=== PATIENT | female | born 2000 | race Hispanic/Latino ===

== ENCOUNTER 2019-10-24 12:32 | Emergency (ER) | payer BC, SELFPAY ==
[2019-10-24 12:43] VITALS: BP 179/83; PULSE 87; RESP 16; TEMP 36.3; O2SAT 98; BMI 40.2
--- NOTE | 2019-10-24 13:04 | DI.US.S_ITS ---
PROCEDURE: US OB <= 14 WEEKS FETUS INDICATIONS: CRAMPING OUTSIDE/PRIOR DATING DATA: Last menstrual period (LMP): 09/14/2019. LMP-based estimated date of delivery (TANGELA): 06/20/20. First dating scan (date and location): 10/24/19. Estimated date of delivery (TANGELA) from first dating scan: 06/19/20. TECHNIQUE: Real-time scanning was performed of the fetus and maternal pelvic organs, with image documentation. Endovaginal scanning was also performed to better visualize the fetus and maternal ovaries. COMPARISON: None. FINDINGS: Embryo: There is a single intrauterine gestation with a mean gestational sac diameter of approximately 0.9 cm which correlates with approximately 5 weeks and 5 days gestational age. A pole is not visualized. No cardiac activity is identified at this time. No perigestational hemorrhage visualized. Measurement variability in dating: +/- 4 weeks by LMP, +/- 7 days by mean sac diameter (use before 6 weeks gestation if crown-rump length not able to be measured), +/- 5 days by crown-rump length (up to 8 weeks 6 days gestation), +/- 7 days by crown-rump length (up to 13 weeks 6 days gestation). Maternal organs: There is a probable 2.5 cm left corpus luteal cyst. Otherwise, unremarkable appearance of the maternal ovaries. Limited images through the kidneys demonstrate no hydronephrosis. IMPRESSION: 1. Single intrauterine gestation with an estimated sonographic gestational age of approximately 5 weeks and 5 days. A gestational sac is visualized. However, no pole or cardiac activity is visualized at this time. Recommend continued clinical surveillance with consideration for serial quantitative hCG measurements to document expected rate of rise for normal progression. Followup imaging after at least 14 days is recommended to document cardiac activity. 2. No acute abnormalities identified. Dictated by: Tadeo Post M.D. on 10/24/2019 at 13:58 Approved by: Tadeo Post M.D. on 10/24/2019 at 14:03
[2019-10-24 13:37] LABS: RBC Urine None Seen (0-5/HPF)
[2019-10-24] MEDS: ACETAMINOPHEN 325 MG TABLET 650 MG PO (13:56)
[2019-10-24 14:08] LABS: WBC Urine 1-5/HPF (0-5/HPF)
[2019-10-24 14:09] LABS: Bacteria Urine Few (2-10); Culture Indicated Urine Specimen Cultured; Mucus Urine 1+ (Negative); Squamous Epithelial Cell Urine 1-5 /HPF (0-5/HPF)
[2019-10-24 15:11] LABS: HCG Quantitative /Beta subunit 7503.3 mIU/mL
[2019-10-24 15:39] VITALS: BP 118/66; PULSE 77; RESP 16; O2SAT 100
--- NOTE | 2019-10-24 15:56 | ED_ITS ---
HPI - <[facility] - Last Filed: 10/24/19 21:45> General Chief complaint: OB/Uterine Contractions Stated complaint: Bad cramping, + test 10/20/19 Time Seen by Provider: 10/24/19 12:42 Source: patient Mode of arrival: Ambulatory Limitations: no limitations History of Present Illness HPI Narrative: This is a 19-year-old female, former smoker, who presents to ED w ith abdominal cramping discomfort which is worse on right side with positive home test result. Patient denies vaginal bleeding but reports some back pain. This is a . LMP was 09/14/2019. Patient reports she has an initial appointment with Dr. Hammond this coming Sunday for . Patient reports urinary frequency but denies dysuria, hematuria, urgency. Patient has intermittent nausea and occasional vomiting which is infrequent. Patient also reports has history of ovarian cyst and removal surgery that was done 2 years ago otherwise patient reports she has been healthy. Date of Last Menstrual Period: 09/14/19 Patient : Yes Expected Date of Delivery: 06/20/20 Related Data Allergies Allergy/AdvReac Type Severity Reaction Status Date / Time latex Allergy Verified 10/24/19 12:43 Review of Systems <[facility] - Last Filed: 10/24/19 21:45> Review of Systems Narrative: General: Denies fever, chills, fatigue, malaise, sweats. HEENT: Denies sinus pain, ear pain, sore throat, difficulty swallowing, dizziness. Respiratory: Denies dyspnea, cough, wheezing, hemoptysis, sputum. Cardiovascular: Denies chest pain, palpitations, orthopnea, edema. Gastrointestinal: See HPI : Denies dysuria, (+) frequency, incontinence, hematuria, urinary retention. Musculoskeletal: Denies weakness, joint pain or bony pain. Skin: Denies rash, skin lesions, or other. Neurologic: Denies weakness, headache, numbness, change in speech, confusion, seizures, incoordination. Psychiatric: No concerning psychosocial issues. 12-point review of systems is negative except for those stated above. PMFSH - <[facility] - Last Filed: 10/24/19 21:45> Past Medical History Additional medical history: Ovarian cyst MERCHANDISER history: Reports Other (Ovarian cyst removal) Date of Last Menstrual Period: 09/14/19 Patient : Yes Expected Date of Delivery: 06/20/20 Psychiatric history: Reports no psych history Exam <JESSICA Corbett - Last Filed: 10/24/19 21:45> Narrative Exam Narrative: General appearance: well developed, well nourished, in no acute distress. Head: normocephalic, atraumatic, no scalp lesions, non-tender. ENT: Hearing grossly intact. Nose without bleeding, purulent discharge. Mucous membrane moist, no mucosal lesion. Throat without erythema, tonsillar hypertrophy or exudate. Uvula in midline, airway patent. Neck/Thyroid: neck supple, full range of motion, no visible masses or meningeal signs. No JVD, non-tender without lymphadenopathy. Skin: no suspicious rashes, lesions over visible areas. Warm and dry and appropriate color for ethnicity. Heart: no clubbing, no cyanosis, no edema. S1 and S2 normal. RRR w/o murmurs, clicks, or bruits. Lungs: Breathing even and unlabored. No stridor. No accessory muscles used. Able to speak in full sentences. Chest: normal shape and expansion. Abdomen: Soft, no rebound tenderness, guarding, distension but tender to palpate bilateral lower abdomen. Neurologic: alert and oriented. Cognitive exam, DISABILITIES SERVICES OFFICER and PNS grossly intact on informal exam. Psych: good eye contact, normal affect. Initial Vital Signs Initial Vital Signs: Vital Signs Temperature 97.3 F L 10/24/19 12:43 Pulse Rate 87 10/24/19 12:43 Respiratory Rate 16 10/24/19 12:43 Blood Pressure 179/83 H 10/24/19 12:43 Pulse Oximetry 98 10/24/19 12:43 <Luz Tesfaye MD - Last Filed: 10/25/19 07:19> Initial Vital Signs Initial Vital Signs: Vital Signs Temperature 97.3 F L 10/24/19 12:43 Pulse Rate 87 10/24/19 12:43 Respiratory Rate 16 10/24/19 12:43 Blood Pressure 179/83 H 10/24/19 12:43 Pulse Oximetry 98 10/24/19 12:43 Scores <JESSICA Corbett - Last Filed: 10/24/19 21:45> GCS [place] coma scale eye opening: Spontaneous Sharmin coma scale verbal response: Orientated [place] coma scale motor response: Obey commands [place] coma scale total score: 15 Course <JESSICA Corbett - Last Filed: 10/24/19 21:45> Orders Ordered: Discontinued Medications Acetaminophen (Tylenol) 650 mg PO NOW ONE Stop: 10/24/19 13:05 Last Admin: 10/24/19 13:56 Dose: 650 mg Documented by: PETER Vital Signs Vital signs: Vital Signs - 8 hr 10/24/19 15:39 10/24/19 16:19 Pulse Rate 77 70 Respiratory Rate 16 16 Blood Pressure 118/60 Blood Pressure [Left Arm] 118/66 Pulse Oximetry 100 97 <Luz Tesfaye MD - Last Filed: 10/25/19 07:19> Orders Ordered: Discontinued Medications Acetaminophen (Tylenol) 650 mg PO NOW ONE Stop: 10/24/19 13:05 Last Admin: 10/24/19 13:56 Dose: 650 mg Documented by: PETER Vital Signs Vital signs: Vital Signs - 8 hr 10/24/19 15:39 10/24/19 16:19 Pulse Rate 77 70 Respiratory Rate 16 16 Blood Pressure 118/60 Blood Pressure [Left Arm] 118/66 Pulse Oximetry 100 97 MDM - OB/Uterine Contractions <JESSICA Corbett - Last Filed: 10/24/19 21:45> Differential Diagnosis Differential diagnosis: Likely other (, ectopic , ovarian cyst, threaten AB, UTI) Medical Records Attestation: I reviewed the patient's medical records. Lab Data Attestation: I reviewed the patient's lab results. Labs: Lab Results 10/24/19 10/24/19 10/24/19 Range/Units 13:20 14:06 14:06 HCG, Quant 7503.3 mIU/mL Urine RBC None seen (0-5/HPF) Urine WBC 1-5/hpf (0-5/HPF) Ur Squamous Epith Cells 1-5 /hpf (0-5/HPF) Urine Bacteria Few (2-10) H (None) Urine Mucus 1+ H (Negative) Ur Culture Indicated? Specimen cultured Blood Type A Positive Point of Care Testing Test Results Positive Urine Dip Bedside Urine Glucose Negative Bedside Urine Bilirubin - Negative Bedside Urine Ketone - Negative Urine Specific [place] 1.025 Bedside Urine Occult Blood - Negative Bedside Urine pH 6.0 Bedside Urine Protein - Negative Bedside Urine Urobilinogen - Negative Bedside Urine Nitrite - Negative Bedside Urine Leukocytes +/- 15 Esterase Imaging Data US Gestational: Radiologist's Impression: [address] [address] Ultrasound Report Signed Patient: Lucy Marquez CMR#: [id number] : 2000Acct:[id number] Age/Sex: te of Service: 10/24/19 Loc: ED Accession Number: [id number] Procedure: US OB <= 14 weeks fetus Ordering Provider: Wilmer Hernandez PROCEDURE: US OB <= 14 WEEKS FETUS INDICATIONS: CRAMPING OUTSIDE/PRIOR DATING DATA: Last menstrual period (LMP): 09/14/2019. LMP-based estimated date of delivery (TANGELA): 06/20/20. First dating scan (date and location): 10/24/19. Estimated date of delivery (TANGELA) from first dating scan: 06/19/20. TECHNIQUE: Real-time scanning was performed of the fetus and maternal pelvic organs, with image documentation. Endovaginal scanning was also performed to better visualize the fetus and maternal ovaries. COMPARISON: None. FINDINGS: Embryo: There is a single intrauterine gestation with a mean gestational sac diameter of approximately 0.9 cm which correlates with approximately 5 weeks and 5 days gestational age. A pole is not visualized. No cardiac activity is identified at this time. No perigestational hemorrhage visualized. Measurement variability in dating: +/- 4 weeks by LMP, +/- 7 days by mean sac diameter (use before 6 weeks gestation if crown-rump length not able to be measured), +/- 5 days by crown-rump length (up to 8 weeks 6 days gestation), +/- 7 days by crown-rump length (up to 13 weeks 6 days gestation). Maternal organs: There is a probable 2.5 cm left corpus luteal cyst. Otherwise, unremarkable appearance of the maternal ovaries. Limited images through the kidneys demonstrate no hydronephrosis. IMPRESSION: 1. Single intrauterine gestation with an estimated sonographic gestational age of approximately 5 weeks and 5 days. A gestational sac is visualized. However, no pole or cardiac activity is visualized at this time. Recommend continued clinical surveillance with consideration for serial quantitative hCG measurements to document expected rate of rise for normal progression. Followup imaging after at least 14 days is recommended to document cardiac activity. 2. No acute abnormalities identified. Dictated by: Tadeo Post M.D. on 10/24/2019 at 13:58 Approved by: Tadeo Post M.D. on 10/24/2019 at 14:03 MDM Narrative Medical decision making narrative: This is a 19 year female with who presents to ED with low abdominal discomfort with nausea. LMP was 09/14/19 and g estational age as 5 week 5/7 day without vaginal bleeding. Test shows positive urine test with small amount of urine leukocytes esterase without nitrite. There was no hematuria. Urine test shows few bacteria with mucus and pending for culture. Quantitative hCG level is 7503 which correlates to patient's current gestational age. ultrasound test indicates a single intrauterine gestational sac which correlates to her gestational age but pole or cardiac activity were not been seen possibly due to early . There was no perigestational hemorrhage appreciated per ultrasound. Also, a probable 2.5 cm left corpus luteal cyst was seen. Kidney appears to be normal without hydronephrosis. Patient advised to follow-up with Dr. Hammond for 1st OB appointment and follow-up testing. Patient advised to take vitamins and Tylenol as needed for pain management. Patient verbalized understanding in agreement with treatment plan after discussed return precautions. <Luz Tesfaye MD - Last Filed: 10/25/19 07:19> Lab Data Labs: Lab Results 10/24/19 10/24/19 10/24/19 Range/Units 13:20 14:06 14:06 HCG, Quant 7503.3 mIU/mL Urine RBC None seen (0-5/HPF) Urine WBC 1-5/hpf (0-5/HPF) Ur Squamous Epith Cells 1-5 /hpf (0-5/HPF) Urine Bacteria Few (2-10) H (None) Urine Mucus 1+ H (Negative) Ur Culture Indicated? Specimen cultured Blood Type A Positive Point of Care Testing Test Results Positive Urine Dip Bedside Urine Glucose Negative Bedside Urine Bilirubin - Negative Bedside Urine Ketone - Negative Urine Specific [place] 1.025 Bedside Urine Occult Blood - Negative Bedside Urine pH 6.0 Bedside Urine Protein - Negative Bedside Urine Urobilinogen - Negative Bedside Urine Nitrite - Negative Bedside Urine Leukocytes +/- 15 Esterase Discharge Plan Departure Patient Disposition: Home Clinical Impression: Cyst of left ovary Qualifiers: Weeks of gestation: less than 8 weeks Qualified Code(s): Z3A.01 - Less than 8 weeks gestation of Discharge Date/Time: 10/24/19 16:21 Instructions: DI for -- Discomforts and Remedies Activity Restrictions/Additional Instructions: You have been diagnosed with [, bilateral lower abdominal cramping and left-sided corpus luteal cyst measuring approximately 2.5 cm. Ultrasound test shows a single gestational sac in intrauterine with approximately 5 weeks and 5 days gestational age. Since your is very early on, there is no cardiac activity or pole were visualized. Hcg quant today is 7503]. What to do: *Take your medications as directed. You can take Tylenol as needed for discomfort. You can take 2 extra-strength or regular Tylenol up to 3 to 4 times a day as needed. Please start taking vitamins which she can obtain [id number]. *Follow up with your primary care provider in 2-3 days/for follow-up with Dr. Hammond on Sunday as scheduled. Call for an appointment Let them know you were seen in the ED and that we asked you to be seen in follow up. *Return to ED if you have any new, worsening, or concerning symptoms, such as [chest pain, breathing difficulty, vaginal bleeding, lightheadedness, unable to tolerate fluids, fever or any acute concerns]. Referrals: Dong Hammond MD [Physician] - <Luz Tesfaye MD - Last Filed: 10/25/19 07:19> Cosign ED Attending Cosignature Attestation: Care and findings were reviewed with APC HCG is seven thousand five hundred, gestational sac is appreciated intrauterine without pole seen. Possible blighted ovum, will have patient follow-up with her primary OB care provider Final diagnosis should be early intra uterine with corpus luteum cyst noted,
[2019-10-24 16:19] VITALS: BP 118/60; PULSE 70; RESP 16; O2SAT 97
== END 2019-10-24 16:21 | disposition home or self-care (01) ==
PROVIDERS: Emergency Provider Nurse Practitioner Family
DX: O26.891 Other specified pregnancy related conditions, first trimester (principal); N83.202 Unspecified ovarian cyst, left side; Z3A.01 Less than 8 weeks gestation of pregnancy
CPT/HCPCS: 36415; 76801; 76817; 81003; 81015; 81025; 84702; 86900; 86901; 87086; 99284

== ENCOUNTER → 2020-08-07 11:17 | Outpatient (CLI) | payer BC, SELFPAY ==
[2020-08-07 12:18] LABS: Add Manual Diff / Slide Review NO; Basophils Absolute Auto 0 /uL (0-100); Basophils Percent Auto 0.4 % (0-2); Eosinophils Absolute Auto 400 /uL (0-450); Eosinophils Percent Auto 3.2 % (2-4); Hematocrit 44.2 % (36-46); Hemoglobin 14.6 g/dL (12.0-16.0); Lymphocytes Absolute Auto 3000 /uL (1100-4500); Mean Corpuscular Hemoglobin 26.9 PG (26-34); Mean Corpuscular Volume 81.8 fL (80-100); Monocytes Absolute Auto 500 /uL (0-900); Monocytes Percent Auto 4.5 % (3-14); Neutrophils Absolute Auto 7300 /uL (1500-7000); Neutrophils Percent Auto 64.9 % (50-75); Platelet Count 215 X10^3/uL (150-400); Red Cell Distribution Width 14.7 % (11.6-14.8); White Blood Cell Count 11.2 X10^3/uL (4.5-11.0)
[2020-08-07 12:46] LABS: Alanine Aminotransferase 62 IU/L (<35); Albumin 4.2 g/dL (3.5-5.0); Albumin Globulin Ratio 1.4 (1.0-2.8); Alkaline Phosphatase 93 U/L (38-126); Aspartate Aminotransferase 43 IU/L (14-36); BUN Creatinine Ratio 10.3 (6-22); Bilirubin Total 0.6 mg/dL (0.2-1.3); Blood Urea Nitrogen 8 mg/dL (7-17); Calcium 8.9 mg/dL (8.4-10.2); Carbon Dioxide 26 mmol/L (22-32); Chloride 107 mmol/L (98-107); Estimated Glomerular Filt Rate > 60.0 mL/min (>60); Globulin 3.1 g/dL (1.7-4.1); Glucose 114 mg/dL (70-100); HEMOLYSIS < 15 (0-50); Potassium 3.7 mmol/L (3.4-5.1); Sodium 138 mmol/L (137-145); Total Protein 7.3 g/dL (6.3-8.2)
[2020-08-07 12:59] LABS: Free T4, Direct Thyroxine 1.31 ng/dL (0.78-2.19)
[2020-08-07 13:13] LABS: Thyroid Stimulating Hormone 0.954 uIU/mL (0.47-4.68)
== END ==
PROVIDERS: PCP Registered Nurse; Referring Provider Registered Nurse; Visit Provider Registered Nurse
DX: Z00.00 Encounter for general adult medical examination without abnormal findings (principal); F32.9 Major depressive disorder, single episode, unspecified; F41.9 Anxiety disorder, unspecified
CPT/HCPCS: 36415; 80053; 84439; 84443; 85025

== ENCOUNTER → 2020-08-12 12:35 | Outpatient (CLI) | payer BC, SELFPAY ==
--- NOTE | 2020-08-12 12:36 | DI.US.S_ITS ---
PROCEDURE: US ABDOMEN COMPLETE INDICATIONS: ELEVATED LIVER ENZYMES TECHNIQUE: Real-time scanning was performed of the abdominal and retroperitoneal organs, with image documentation. COMPARISON: None. FINDINGS: Liver: The liver demonstrates normal size. The liver demonstrates generalized moderately increased echogenicity. This decreases ultrasound sensitivity for detection of hepatic masses. There is a hypoechoic homogeneous nonvascular focus that measures 2.3 x 1.7 x 1 cm. Within the right lower lobe adjacent to the gallbladder, there is a hypoechoic homogeneous nonvascular focus measures 17 x 2 x 19 mm. . The main portal vein measures 1.1 cm and demonstrates normal appearing, hepatopetal flow. Gallbladder: No findings of gallstones or sludge are seen. The gallbladder wall is not thickened, measuring 3 mm or less. No specific pericholecystic fluid is seen. The sonographic Ruiz sign is negative. Biliary ducts: Intrahepatic bile ducts are non-dilated. Extrahepatic bile duct caliber measures 4 mm. Normal is 6-7 mm or less in diameter, or 10 mm or less post-cholecystectomy. Pancreas: Visualized portions of the pancreas are sonographically normal. Spleen: Spleen is normal in size and homogeneous in echotexture. Kidneys: Kidneys are normal in size and echotexture. Right kidney measures 9.6 cm long; left kidney measures 9.3 cm long. No hydronephrosis or nephrolithiasis. No solid masses. There is a 1.1 cm simple cyst within the mid left kidney. Aorta: Visualized aorta is normal in caliber at less than 3 cm. Iliacs: Proximal common iliac arteries are normal in caliber at less than 2.5 cm. IVC: Intrahepatic inferior vena cava is patent. Miscellaneous: No free abdominal fluid. This study is limited by body habitus and overlying bowel gas. IMPRESSION: Fatty liver infiltration, with apparent areas of focal fatty sparing. The gallbladder demonstrates a normal sonographic appearance. No biliary dilatation is seen. 1.1 cm simple appearing left renal cyst incidentally noted. Dictated by: Bereket Oliveros M.D. on 08/12/2020 at 12:42 Approved by: Bereket Oliveros M.D. on 08/12/2020 at 12:44
== END ==
PROVIDERS: PCP Registered Nurse; Referring Provider Registered Nurse; Visit Provider Registered Nurse
DX: R74.8 Abnormal levels of other serum enzymes (principal); K76.0 Fatty (change of) liver, not elsewhere classified; N28.1 Cyst of kidney, acquired
CPT/HCPCS: 76700

== ENCOUNTER 2020-08-16 15:48 | Emergency (ER) | payer BC, SELFPAY ==
[2020-08-16 16:02] VITALS: BP 117/75; PULSE 105; RESP 17; TEMP 36.5; O2SAT 97
--- NOTE | 2020-08-16 16:59 | PC.NURSE ---
one attempt to start IV, no access from NIOs. Provider entered room and asked for no further attempts.
--- NOTE | 2020-08-16 17:01 | ED_ITS ---
HPI - General Adult General Chief complaint: Abdominal Pain Stated complaint: CRAMPS NAUSEA Time Seen by Provider: 08/16/20 16:49 Source: patient Mode of arrival: Ambulatory Limitations: no limitations History of Present Illness HPI narrative: Patient is a otherwise healthy 20-year-old female who has for the past 2 months had fairly consistent nausea that she describes comes from her upper abdomen. No fevers. She has been on Protonix for the past 3 weeks under recommendation from her primary doctor. She also describes cramping in her upper abdomen that has been intermittent. Does not seem to be associated with eating or movement or palpation or breathing or bowel movements or urination. She had an ultrasound performed here ordered by her primary doctor because of the symptoms. She stated that she contacted her primary doctor over the weekend because her symptoms been continued and she received a call today informing her to come to the emergency department. She states she is unsure as to why she is here. Related Data Home Medications Medication Instructions Recorded Confirmed etonogestrel 68 mg subdermal SUBDERMAL 07/29/20 08/10/20 implant metformin mg PO DAILY 08/16/20 pantoprazole [Protonix] 40 mg PO DAILY 08/16/20 08/16/20 Previous Rx's Medication Instructions Recorded citalopram 20 mg tablet 20 mg PO DAILY 30 Days #30 tab 07/29/20 ondansetron 4 mg PO Q6H PRN #14 tab 08/16/20 Allergies Allergy/AdvReac Type Severity Reaction Status Date / Time latex Allergy Verified 08/16/20 16:11 Review of Systems Constitutional Constitutional: Denies fever(s) Cardiovascular Cardiovascular: Denies chest pain and Denies dyspnea Respiratory Respiratory: Denies dyspnea Gastrointestinal Gastrointestinal: Denies abdominal pain, Denies change in bowel habits, Reports cramping, Reports nausea and Denies vomiting Genitourinary Genitourinary: Denies dysuria Genitourinary: Denies dysuria Musculoskeletal Musculoskeletal: Denies arthralgias and Denies myalgias Integumentary/Breasts Skin/Breast: Denies lesions and Denies rash Neurologic Neurologic: Denies behavioral changes and Denies confusion Psychiatric Psychiatric: Denies behavioral changes and Denies confusion Hematologic/Lymphatic On Anticoagulants: No Allergic/Immunologic Allergic/Immunologic: Denies urticaria Patient History Medical History Asthma History of bipolar disorder Migraines Ovarian cyst Painful menstrual periods Surgical History Anesthesia History of removal of ovarian cyst (~02/2018) Family History Grandmother Thyroid condition Social History Smoking Status: Current every day smoker Tobacco: How many years used: 6 quit status: quit date established second hand exposure: No alcohol intake: never substance use type: marijuana (daily ) Smoking Status: Current every day smoker tobacco type: cigarettes alcohol intake frequency: other Substance Use Type: marijuana Exam Initial Vital Signs Initial Vital Signs: Vital Signs Temperature 97.7 F 08/16/20 16:02 Pulse Rate 105 H 08/16/20 16:02 Respiratory Rate 17 08/16/20 16:02 Blood Pressure 117/75 08/16/20 16:02 Pulse Oximetry 97 08/16/20 16:02 Const General: cooperative and comfortable Limitations: mental status not altered HENMT Head: normal to inspection and normocephalic Resp Effort & Inspection: normal respiratory effort Auscultation: clear to auscultation bilaterally Cardio Rate: regular rate Rhythm: regular rhythm GI Inspection: non-distended Palpation: soft, No firm and No tender Back/Spine/Pelvis Back: No CVA tenderness Skin Lesions: no lesions Rashes: no rashes Neuro General: patient alert and patient awake Cognition: normal cognition Speech: speech normal Extrem General: capillary refill normal Psych Appearance: grossly normal and well kempt Course Orders Ordered: ED Orders 08/16/20 16:13 Complete Blood Count AUTO DIFF Stat Comprehensive Metabolic Panel Stat Lipase Stat Partial Thromboplastin Time Stat Prothrombin Time INR Stat Vital Signs Vital signs: Vital Signs - 8 hr 08/16/20 16:02 Temperature 97.7 F Pulse Rate 105 H Respiratory Rate 17 Blood Pressure 117/75 Pulse Oximetry 97 Medical Decision Making [facility] Narrative Medical decision making narrative: Patient has had symptoms for months and has seen her primary doctor regarding the symptoms. States that her symptoms have not changed the just have not improved. She feels like the Protonix is not helping all that much. She is not on any nausea medication. Given her presenting symptoms and exam and length of time I feel that no further workup is needed here in the emergency department. The patient agrees with this. We will send her home with nausea medication. Informed her that she should continue with the Protonix and talk with her primary doctor about having referral to see GI. Low suspicion for gallbladder pathology. Low suspicion for appendicitis, low suspicion for surgical pathology. She is not having any urinary bowel or vaginal symptoms peer Discharge Plan Departure Patient Disposition: Home Clinical Impression: Abdominal cramping, Nausea Instructions: DI for Nausea -- Adult Activity Restrictions/Additional Instructions: I recommend that you continue with the Protonix. Contact your primary doctor about the indications for referral to see Gastroenterology. Take the nausea medicine as needed. Return to the emergency department for any new or worsening symptoms. Prescriptions: New ondansetron 4 mg tablet,disintegrating 4 mg PO Q6H PRN (Reason: nausea and vomiting) Qty: 14 RF: 0 No Action Nexplanon 68 mg implant subdermal RF: 0 citalopram 20 mg tablet 20 mg PO DAILY 30 Days Qty: 30 RF: 2 metformin 500 mg Tablet PO DAILY RF: 0 pantoprazole [Protonix] 40 mg Tablet,Delayed Release (Dr/Ec) 40 mg PO DAILY RF: 0 Referrals: Calin Lozoya ARNP [Primary Care Provider] -
== END 2020-08-16 17:27 | disposition home or self-care (01) ==
PROVIDERS: Emergency Provider Emergency Medicine; PCP Registered Nurse
DX: R10.10 Upper abdominal pain, unspecified (principal); R11.0 Nausea; J45.909 Unspecified asthma, uncomplicated
CPT/HCPCS: 99281

== ENCOUNTER 2020-08-17 16:14 | Emergency (ER) | payer BC, SELFPAY ==
[2020-08-17 16:15] VITALS: BP 118/64; PULSE 95; RESP 20; TEMP 36.1; O2SAT 97
--- NOTE | 2020-08-17 17:07 | ED_ITS ---
HPI - Psych General Chief Complaint: Psychiatric Symptoms Stated Complaint: SI Time Seen by Provider: 08/17/20 16:32 Source: patient Mode of arrival: Ambulatory Limitations: no limitations History of Present Illness HPI Narrative: Patient is a 20-year-old female who was sent over from her primary doctor's office for evaluation of suicidal ideation and depression. Patient states that back but she was 13 years old she did have issues with depression was on medications at that time. She also practice cutting at the time. She has never been admitted to the hospital for and has never attempted suicide. The symptoms seemed to improve until a couple weeks/months ago where she started to become more depressed. She does not have a specific reason is why this happened. She has seen her primary doctor in 3 weeks ago was started on anti depression medications. Since that time she has had which she reports constant thoughts of hurting herself. There are no specific thoughts. She does state that it is more thoughts of cutting herself and not necessarily suicidal ideation however she has had some thoughts of just being and not having to deal with the symptoms that she is having. She denies any alcohol. She states that her symptoms are better when she is around other individuals. Related Data Home Medications Medication Instructions Recorded Confirmed etonogestrel 68 mg subdermal SUBDERMAL 07/29/20 08/10/20 implant metformin mg PO DAILY 08/16/20 pantoprazole [Protonix] 40 mg PO DAILY 08/16/20 08/16/20 Previous Rx's Medication Instructions Recorded citalopram 20 mg tablet 20 mg PO DAILY 30 Days #30 tab 07/29/20 ondansetron 4 mg PO Q6H PRN #14 tab 08/16/20 lorazepam [Ativan] 0.5 mg PO BID PRN #10 tab 08/17/20 Allergies Allergy/AdvReac Type Severity Reaction Status Date / Time lamotrigine Allergy Hives Verified 08/17/20 15:29 latex Allergy Verified 08/17/20 15:29 Review of Systems Constitutional Constitutional: Denies headache(s) ENT Ears, Nose, Mouth, and Throat: Denies headache(s) Cardiovascular Cardiovascular: Denies chest pain and Denies dyspnea Respiratory Respiratory: Denies dyspnea Gastrointestinal Gastrointestinal: Denies abdominal pain Integumentary/Breasts Skin/Breast: Denies rash Neurologic Neurologic: Denies headache(s) Psychiatric Psychiatric: Reports anxiety, Reports depression, Denies homicidal ideation and Reports suicidal ideation Hematologic/Lymphatic On Anticoagulants: No Allergic/Immunologic Allergic/Immunologic: Denies urticaria Patient History Medical History Asthma History of bipolar disorder Migraines Ovarian cyst Painful menstrual periods Surgical History Anesthesia History of removal of ovarian cyst (~02/2018) Family History Grandmother Thyroid condition Social History Smoking Status: Current every day smoker Tobacco: How many years used: 6 quit status: quit date established second hand exposure: No alcohol intake: never substance use type: marijuana (daily ) Smoking Status: Current every day smoker tobacco type: cigarettes alcohol intake frequency: other Substance Use Type: marijuana Exam Initial Vital Signs Initial Vital Signs: Vital Signs Temperature 96.9 F L 08/17/20 16:15 Pulse Rate 95 H 08/17/20 16:15 Respiratory Rate 20 08/17/20 16:15 Blood Pressure 118/64 08/17/20 16:15 Pulse Oximetry 97 08/17/20 16:15 Const General: cooperative, comfortable and well developed Limitations: mental status not altered HENMT Head: normal to inspection and normocephalic Resp Effort & Inspection: normal respiratory effort Cardio Rate: regular rate GI Inspection: non-distended Skin Lesions: no lesions Rashes: no rashes Neuro General: patient alert, patient awake and patient oriented x3 Cognition: normal cognition Speech: speech normal Extrem General: capillary refill normal Psych Appearance: grossly normal and well kempt Speech and Movement: not agitated and not restless Mood: congruent mood Affect: normal affect Attitude: cooperative Thought Content: normal Judgment: judgment good Scores GCS [place] coma scale eye opening: Spontaneous [place] coma scale verbal response: Orientated [place] coma scale motor response: Obey commands [place] coma scale total score: 15 Course Orders Ordered: ED Orders 08/17/20 16:[address] [facility] - [employer] Stat Vital Signs Vital signs: Vital Signs - 8 hr 08/17/20 16:15 08/17/20 17:55 Temperature 96.9 F L Pulse Rate 95 H 97 H Respiratory Rate 20 16 Blood Pressure 118/64 143/81 H Pulse Oximetry 97 95 MDM - Psych MDM Narrative Medical decision making narrative: Patient is alert oriented x3. GCS of 15. She is on antidepressant medications. Patient states she does not want to be admitted to the hospital. Had a long discussion with her regarding safety at home. She states that she does not think that she would act on any the thoughts she is having and she does express that the thoughts are more with cutting herse lf rather than wanting to kill herself. She attempted to contact the Mental Health Department here at the hospital but has been unable to reach anyone to schedule an appointment. Discussed options to include staying here in the emergency department versus being discharged home. We eventually were able to contact the [employer] who were going to contact the patient tomorrow to check in on her and potentially schedule follow-up appointments. Patient states that she was happy with this and thought that she would be safe at home. Her is at bedside and will be with her this evening. Patient was instructed that she needed return to the emergency department she had any further or worsening thoughts. She expressed understanding and agreement with this. Discharge Plan Departure Patient Disposition: Home Clinical Impression: Anxiety and depression Instructions: DI for Anxiety -- Adult Activity Restrictions/Additional Instructions: You should be receiving a call from the [employer] tomorrow morning. I recommend you continue all of your medications as directed. Please return to the emergency department for any new or worsening symptoms like we discussed. Prescriptions: New lorazepam [Ativan] 0.5 mg tablet 0.5 mg PO BID PRN (Reason: anxiety) Qty: 10 RF: 0 No Action Nexplanon 68 mg implant subdermal RF: 0 citalopram 20 mg tablet 20 mg PO DAILY 30 Days Qty: 30 RF: 2 metformin 500 mg Tablet PO DAILY RF: 0 pantoprazole [Protonix] 40 mg Tablet,Delayed Release (Dr/Ec) 40 mg PO DAILY RF: 0 ondansetron 4 mg tablet,disintegrating 4 mg PO Q6H PRN (Reason: nausea and vomiting) Qty: 14 RF: 0 Referrals: Calin Lozoya ARNP [Primary Care Provider] -
[2020-08-17 17:55] VITALS: BP 143/81; PULSE 97; RESP 16; O2SAT 95
== END 2020-08-17 18:05 | disposition home or self-care (01) ==
PROVIDERS: Emergency Provider Emergency Medicine; PCP Registered Nurse; Referring Provider Registered Nurse
DX: F41.9 Anxiety disorder, unspecified (principal); F32.9 Major depressive disorder, single episode, unspecified
CPT/HCPCS: 99283

== ENCOUNTER → 2020-10-20 14:57 | Outpatient (CLI) | payer BC, SELFPAY ==
[2020-10-20] MEDS: COVID-19 VACC #1, MRNA(MOD) 100 MCG/0.5 ML VIAL IM (15:05)
== END ==
PROVIDERS: PCP Registered Nurse; Visit Provider Internal Medicine
DX: Z23 Encounter for immunization (principal)
CPT/HCPCS: 0011A; 91301

== ENCOUNTER → 2020-11-17 14:56 | Outpatient (CLI) | payer BC, SELFPAY ==
[2020-11-17] MEDS: COVID-19 VACC #2, MRNA(MOD) 100 MCG/0.5 ML VIAL IM (15:01)
== END ==
PROVIDERS: PCP Registered Nurse; Visit Provider Internal Medicine
DX: Z23 Encounter for immunization (principal)
CPT/HCPCS: 0012A; 91301

== ENCOUNTER → 2020-12-16 13:11 | Outpatient (CLI) | payer BC, SELFPAY ==
[2020-12-16 15:15] LABS: Alanine Aminotransferase 60 IU/L (<35); Albumin 4.1 g/dL (3.5-5.0); Albumin Globulin Ratio 1.4 (1.0-2.8); Alkaline Phosphatase 81 U/L (38-126); Aspartate Aminotransferase 51 IU/L (14-36); Bilirubin Total 0.5 mg/dL (0.2-1.3); Blood Urea Nitrogen 9 mg/dL (7-17); Calcium 9.3 mg/dL (8.4-10.2); Carbon Dioxide 23 mmol/L (22-32); Chloride 107 mmol/L (98-107); Estimated Glomerular Filt Rate > 60.0 mL/min (>60); Globulin 2.9 g/dL (1.7-4.1); Glucose 83 mg/dL (70-100); HEMOLYSIS < 15 (0-50); Potassium 3.8 mmol/L (3.4-5.1); Sodium 138 mmol/L (137-145)
[2020-12-16 15:20] LABS: Lithium 0.4 mmol/L (0.6-1.2)
[2020-12-16 15:54] LABS: Thyroid Stimulating Hormone 2.59 uIU/mL (0.47-4.68)
== END ==
PROVIDERS: PCP Registered Nurse; Referring Provider Psychiatry & Neurology Psychiatry; Visit Provider Psychiatry & Neurology Psychiatry
DX: Z79.899 Other long term (current) drug therapy (principal)
CPT/HCPCS: 36415; 80053; 80178; 84443

== ENCOUNTER → 2021-02-06 15:42 | Outpatient (CLI) | payer BC, SELFPAY ==
--- NOTE | 2021-02-06 15:44 | DI.RAD.S_ITS ---
PROCEDURE: XR FOREARM LT 2V INDICATIONS: fall, distal and radial head tenderness TECHNIQUE: 2 views of the forearm were acquired. COMPARISON: [facility], CR, XR WRIST LT MIN 3V, 02/06/2021, 15:41. [facility], CR, XR HAND LT MIN 3V, 02/06/2021, 15:41. FINDINGS: Bones: In this patient with this given history, scrutiny is given to the radial head. No dislocation can be seen at this site. No fractures or dislocations are seen elsewhere. No suspicious bony lesions. Soft tissues: No suspicious soft tissue calcifications or masses. IMPRESSION: Negative plain films. In this patient with a given history of radial head tenderness, please consider a dedicated elbow plain film series or CT for further evaluation. Dictated by: Bereket Oliveros M.D. on 02/06/2021 at 15:12 Approved by: Bereket Oliveros M.D. on 02/06/2021 at 15:13
--- NOTE | 2021-02-06 15:44 | DI.RAD.S_ITS ---
PROCEDURE: XR WRIST LT MIN 3V INDICATIONS: fall, proximal and distal radial tenderness TECHNIQUE: 4 views of the wrist were acquired. COMPARISON: [facility], CR, XR FOREARM LT 2V, 02/06/2021, 15:41. [facility], CR, XR HAND LT MIN 3V, 02/06/2021, 15:41. FINDINGS: Bones: No fractures or dislocations. No suspicious bony lesions. Scaphoid view: No navicular fractures are seen. Soft tissues: No suspicious soft tissue calcifications. IMPRESSION: No fractures are seen, including involving the scaphoid. In this patient with a given history of snuffbox tenderness, please consider a short-term follow-up plain film series or CT for further evaluation. Dictated by: Bereket Oliveros M.D. on 02/06/2021 at 15:14 Approved by: Bereket Oliveros M.D. on 02/06/2021 at 15:15
--- NOTE | 2021-02-06 15:44 | DI.RAD.S_ITS ---
PROCEDURE: XR HAND LT MIN 3V INDICATIONS: L snuffbox tenderness TECHNIQUE: 3 views of the hand(s) acquired. COMPARISON: [facility], CR, XR WRIST LT MIN 3V, 02/06/2021, 15:41. [facility], CR, XR FOREARM LT 2V, 02/06/2021, 15:41. FINDINGS: Bones: No fractures or dislocations. Carpal bones are normally aligned. No suspicious bony lesions. Soft tissues: No suspicious soft tissue calcifications. IMPRESSION: Normal plain films. Dictated by: Bereket Oliveros M.D. on 02/06/2021 at 15:13 Approved by: Bereket Oliveros M.D. on 02/06/2021 at 15:14
== END ==
PROVIDERS: PCP Registered Nurse; Referring Provider Physician Assistant; Visit Provider Physician Assistant
DX: M79.632 Pain in left forearm (principal); M25.532 Pain in left wrist
CPT/HCPCS: 73090; 73110; 73130

== ENCOUNTER → 2021-04-21 08:05 | Outpatient (CLI) | payer BC, SELFPAY ==
--- NOTE | 2021-04-21 08:06 | DI.MRI.S_ITS ---
PROCEDURE: MR HEAD/BRAIN WO CON INDICATIONS: headaches TECHNIQUE: Noncontrast axial T1 spin echo, axial T2 fast spin echo, sagittal and axial FLAIR, coronal T2 fast spin echo, axial gradient echo, axial diffusion and ADC through the brain. COMPARISON: None. FINDINGS: Image quality: Excellent. CSF Spaces: Basal cisterns are patent. No extra-axial fluid collections. Ventricles are normal in size and shape. Brain: No intracranial masses or hemorrhage. Michel/white matter interface is normal. Brainstem appears normal. Diffusion-weighted images demonstrate no acute ischemic insult. No chronic ischemic insults. Normal intravascular flow voids are present. Skull and face: Calvarium has normal marrow signal. Orbits appear normal. Sinuses: Sinuses and mastoids are clear. IMPRESSION: Unremarkable brain MRI. Normal brain parenchyma. No evidence acute stroke, hemorrhage, or mass. Dictated by: Stewart Bragg M.D. on 04/21/2021 at 8:42 Approved by: Stewart Bragg M.D. on 04/21/2021 at 8:44
== END ==
PROVIDERS: PCP Registered Nurse; Referring Provider Registered Nurse; Visit Provider Registered Nurse
DX: R51.9 Headache, unspecified (principal)
CPT/HCPCS: 70551

== ENCOUNTER 2021-08-10 21:41 | Emergency (ER) | payer BC, SELFPAY ==
[2021-08-10] VITALS (7 sets, daily range): BP systolic 110–150; BP diastolic 65; PULSE 105–120; RESP 20–30; O2SAT 96–99; BMI 41.1
--- NOTE | 2021-08-10 21:43 | ED_ITS ---
HPI - Abdominal Pain General Chief Complaint: Abdominal Pain Stated Complaint: Abdominal pain Time Seen by Provider: 08/10/21 21:43 History of Present Illness HPI narrative: 21F nonsmoker with history of diabetes, anxiety, migraines, bipolar presents with significant other and a chief complaint of severe, worsening epigastric pain with nausea and vomiting over the course of the day. She states her pain is worse with motion and improves with rest. She states initially vomiting might have improved her symptoms but no longer does. She denies any radiation of the pain. It had been persistent over much of the late afternoon but has become a bit more intermittent this evening. She denies any runny nose, sore throat nor fever or chills. She denies any chest pain or shortness of breath. Her only recent medication changes a slight increase in the dosing of her propanolol, she denies any dietary change. Related Data Home Medications Medication Instructions Recorded Confirmed metformin 500 mg tablet mg PO DAILY 08/16/20 04/12/21 lithium carbonate 300 mg capsule 300 mg PO .COMPLEX 02/06/21 04/12/21 ziprasidone HCl 20 mg capsule 20 mg PO DAILY cap 04/12/21 04/12/21 Previous Rx's Medication Instructions Recorded propranolol 80 mg capsule,24 80 mg PO DAILY #30 cap 04/12/21 hr,extended release topiramate 25 mg tablet (Topamax) See Rx Instructions PO DAILY #60 04/21/21 tab ondansetron 4 mg disintegrating 4 mg PO TID-QID PRN #10 tab 08/11/21 tablet pantoprazole 40 mg tablet,delayed 40 mg PO DAILY #30 tab 08/11/21 release (Protonix) Allergies Allergy/AdvReac Type Severity Reaction Status Date / Time lamotrigine Allergy Hives Verified 04/12/21 15:20 latex Allergy Verified 04/12/21 15:20 Review of Systems Review of Systems Narrative: GENERAL: Denies chills, fatigue, malaise, fever, sweats. HEENT: Denies sinus pain, ear pain, sore throat, difficulty swallowing, dizziness. RESPIRATORY: Denies dyspnea, cough, wheezing, hemoptysis, sputum. CARDIOVASCULAR: Denies chest pain, palpitations, orthopnea, edema, GASTROINTESTINAL: See HP : Denies dysuria, frequency, incontinence, hematuria, urinary retention. MUSCULOSKELETAL: denies weakness, joint pain, or bony pain SKIN: Denies rash, skin lesions, or other NEUROLOGIC: Denies weakness, headache, numbness, change in speech, confusion, seizures, incoordination. PSYCHIATRIC: No concerning psychosocial issues. 12 point review of systems is negative except for those stated above Patient History Medical History Asthma History of bipolar disorder Migraines Ovarian cyst Painful menstrual periods Surgical History Anesthesia History of removal of ovarian cyst (~02/2018) Family History Grandmother Thyroid condition Social History Smoking Status: Former smoker Tobacco: How many years used: 6 quit status: quit date established second hand exposure: No alcohol intake: never substance use type: marijuana (daily ) Smoking Status: Former smoker tobacco type: cigarettes alcohol intake frequency: other Substance Use Type: marijuana Exam Narrative Exam Narrative: GENERAL: [21 year old patient appears stated age. Well-developed patient, in mi ld distress. HEAD: Atraumatic. Normocephalic. EYES: Pupils equal round and reactive. Extraocular motions intact. No scleral icterus. No injection or drainage. ENT: Nose without bleeding, purulent drainage. Throat without erythema, tonsillar hypertrophy or exudate. Airway patent. NECK: Trachea midline. Non tender CARDIOVASCULAR: Tachycardic but regular (patient reports high at baseline) rhythm without murmurs, gallops, or rubs. RESPIRATORY: Clear to auscultation. Breath sounds equal bilaterally. No wheezes, rales, or rhonchi. GASTROINTESTINAL: Abdomen soft, tender to palpate across the upper abdomen most significant midline nondistended. EXTREMITIES: No edema or joint tenderness. BACK: Nontender without deformity or crepitance. No flank tenderness. NEURO: AOx3. SKIN: No rash or erythema of visible areas Initial Vital Signs Initial Vital Signs: Vital Signs Pulse Rate 120 H 08/10/21 21:50 Pulse Oximetry 96 08/10/21 21:50 Course Course Course Narrative: Patient with reassuring history and physical exam. She has significant, near- total improvement in symptoms after above-stated therapies. Patient pain is well controlled, tolerating orals. Reassuring labs and imaging. Return precautions given and questions answered to their apparent satisfaction. Orders Ordered: ED Orders 08/10/21 21:47 EKG-12 Lead Stat 08/10/21 21:52 US abdomen limited Stat 08/10/21 22:16 Complete Blood Count AUTO DIFF Stat Comprehensive Metabolic Panel Stat Lipase Stat [place] Stat 08/10/21 23:22 Urine Microscopic Stat Discontinued Medications Hydrocodone Bitart/Acetaminophen (Hydrocodone/Acet 5/325 Prepack) 1 bottle MISC SEEINSTR ONE Stop: 08/11/21 01:19 Last Admin: 08/11/21 01:32 Dose: 1 bottle Documented by: LUCINA Sodium Chloride (Normal Saline 0.9%) 1,000 mls @ 1,000 mls/hr IV BOLUS ONE Stop: 08/10/21 22:51 Last Infusion: 08/11/21 01:22 Dose: 1,000 mls/hr Documented by: Admin: 08/10/21 22:34 Dose: 1,000 mls/hr Documented by: LUCINA Ondansetron HCl (Ondansetron 4 Mg/2 Ml Inj) 4 mg IV NOW ONE Stop: 08/10/21 21:53 Ondansetron HCl (Ondansetron 4 Mg Odt) 4 mg SL NOW ONE Stop: 08/10/21 22:08 Last Admin: 08/10/21 22:09 Dose: 4 mg Documented by: SONDRA Ondansetron HCl (Ondansetron 4 Mg Odt Prepack) 1 bottle [facility] SEEINSTR ONE Stop: 08/11/21 01:19 Last Admin: 08/11/21 01:32 Dose: 1 bottle Documented by: LUCINA Pantoprazole Sodium (Pantoprazole 40 Mg Vial) 40 mg IV NOW ONE Stop: 08/10/21 22:55 Last Admin: 08/10/21 23:06 Dose: 40 mg Documented by: LUCINA Vital Signs Vital signs: Vital Signs - 8 hr 08/10/21 21:50 08/10/21 22:00 08/10/21 22:43 Pulse Rate 120 H 108 H 114 H Respiratory Rate 22 Blood Pressure Pulse Oximetry 96 99 08/10/21 23:00 08/10/21 23:09 08/10/21 23:30 Pulse Rate 110 H 105 H 112 H Respiratory Rate 23 24 20 Blood Pressure 110/65 Pulse Oximetry 97 98 98 08/10/21 23:31 08/11/21 00:00 08/11/21 00:01 Pulse Rate 110 H 102 H 99 H Respiratory Rate 30 H 24 24 Blood Pressure 150/65 H 130/58 L Pulse Oximetry 98 98 98 08/11/21 00:30 08/11/21 01:00 08/11/21 01:30 Pulse Rate 99 H 101 H 102 H Respiratory Rate 15 22 27 H Blood Pressure 120/55 L 115/57 L 121/57 L Pulse Oximetry 100 100 98 MDM - Abdominal Pain Lab Data Result diagrams: 08/10/21 22:16 08/10/21 22:16 Labs: Lab Results 08/10/21 08/10/21 08/10/21 Range/Units 22:16 22:16 22:16 WBC 18.5 H (4.5-11.0) X10^3/uL RBC 5.38 H (4.0-5.2) X10^6/uL Hgb 14.9 (12.0-16.0) g/dL Hct 44.6 (36-46) % MCV 82.9 (80-100) fL MCH 27.8 (26-34) PG MCHC 33.5 (30-36) % RDW 13.4 (11.6-14.8) % Plt Count 266 (150-400) X10^3/uL Neut % (Auto) 84.4 H (50-75) % Lymph % (Auto) 7.9 L (25-40) % [place] % (Auto) 4.6 (3-14) % Eos % (Auto) 2.8 (2-4) % Baso % (Auto) 0.3 (0-2) % Neut # (Auto) 98579 H (2496-7221) /uL Lymph # (Auto) 1500 (6161-7590) /uL [place] # (Auto) 800 (0-900) /uL Eos # (Auto) 500 H (0-450) /uL Baso # (Auto) 100 (0-100) /uL Sodium 137 (137-145) mmol/L Potassium 3.7 (3.4-5.1) mmol/L Chloride 105 (98-107) mmol/L Carbon Dioxide 25 (22-32) mmol/L BUN 11 (7-17) mg/dL Creatinine 0.71 (0.52-1.04) mg/dL Estimated GFR > 60.0 (>60) mL/min BUN/Creatinine Ratio 15.5 (6-22) Glucose 109 H (70-100) mg/dL Calcium 9.6 (8.4-10.2) mg/dL Total Bilirubin 1.2 (0.2-1.3) mg/dL AST 52 H (14-36) IU/L ALT 76 H (<35) IU/L Alkaline Phosphatase 66 (38-126) U/L Total Protein 7.6 (6.3-8.2) g/dL Albumin 4.5 (3.5-5.0) g/dL Globulin 3.1 (1.7-4.1) g/dL Albumin/Globulin Ratio 1.5 (1.0-2.8) Lipase 43 (23-300) U/L Urine RBC (0-5/HPF) Urine WBC (0-5/HPF) Ur Squamous Epith Cells (0-5/HPF) Urine Bacteria (None) Urine Mucus (Negative) Ur Culture Indicated? [place] 0.5 L (0.6-1.2) mmol/L 08/10/21 Range/Units 23:22 WBC (4.5-11.0) X10^3/uL RBC (4.0-5.2) X10^6/uL Hgb (12.0-16.0) g/dL Hct (36-46) % MCV (80-100) fL MCH (26-34) PG MCHC (30-36) % RDW (11.6-14.8) % Plt Count (150-400) X10^3/uL Neut % (Auto) (50-75) % Lymph % (Auto) (25-40) % [place] % (Auto) (3-14) % Eos % (Auto) (2-4) % Baso % (Auto) (0-2) % Neut # (Auto) (9316-7648) /uL Lymph # (Auto) (8475-5368) /uL [place] # (Auto) (0-900) /uL Eos # (Auto) (0-450) /uL Baso # (Auto) (0-100) /uL Sodium (137-145) mmol/L Potassium (3.4-5.1) mmol/L Chloride (98-107) mmol/L Carbon Dioxide (22-32) mmol/L BUN (7-17) mg/dL Creatinine (0.52-1.04) mg/dL Estimated GFR (>60) mL/min BUN/Creatinine Ratio (6-22) Glucose (70-100) mg/dL Calcium (8.4-10.2) mg/dL Total Bilirubin (0.2-1.3) mg/dL AST (14-36) IU/L ALT (<35) IU/L Alkaline Phosphatase (38-126) U/L Total Protein (6.3-8.2) g/dL Albumin (3.5-5.0) g/dL Globulin (1.7-4.1) g/dL Albumin/Globulin Ratio (1.0-2.8) Lipase (23-300) U/L Urine RBC None seen (0-5/HPF) Urine WBC 0-1/hpf (0-5/HPF) Ur Squamous Epith Cells 5-10 /hpf H (0-5/HPF) Urine Bacteria Moderate (10-30) H (None) Urine Mucus 1+ H (Negative) Ur Culture Indicated? Cult not indicated [place] (0.6-1.2) mmol/L Point of care testing: Point of Care Testing Test Results Negative Urine Dip Bedside Urine Glucose Negative Bedside Urine Bilirubin - Negative Bedside Urine Ketone +/- 5 Urine Specific [place] 1.020 Bedside Urine Occult Blood - Negative Bedside Urine pH 6.5 Bedside Urine Protein +/- 15 Bedside Urine Urobilinogen - Negative Bedside Urine Nitrite - Negative Bedside Urine Leukocytes - Negative Esterase Discharge Plan Departure Patient Disposition: Home Clinical Impression: Acute epigastric pain Instructions: DI for Epigastric Pain Activity Restrictions/Additional Instructions: *You have been diagnosed with [acute epigastric pain and vomiting. Your histor y, physical, labs, ultrasound and response to therapies is very reassuring. Thankfully, tonight there is no indication of a condition requiring an emergent intervention such as gallbladder disease, pancreatitis or other. *What to do: *Please continue to take your regular medications as directed. [x ] New medication prescriptions sent to your pharmacy: [ [facility]] [ ] New medication written as a paper prescription [ ] No new medications given *Please follow up with your primary care provider in 2-3 days, call for an appointment. Let them know you were seen in the Emergency Department and that we ask that you be seen in follow up. We will electronically transmit a record of today's note if your PCP is in our system. Additionally, it would seem reasonable to follow up with our general surgeons to discuss whether not endoscopy would be indicated. Please keep in mind that we are in the middle of a crisis during this pandemic and all non emergent surgeries have been canceled state wide. *Please consider a clear liquid diet for the next 24-48 hours and then advance slowly as tolerated *If you do not have a primary care provider please contact the [facility] Resource line at [phone]. They will ask some questions about your medical history and help get you set up with a doctor in the community. *Return to Emergency Department if you should have any new, worsening or concerning symptoms, such as [fever greater than 101 F, shaking chills, worsening pain, persistent vomiting or other bothersome symptoms] Prescriptions: New pantoprazole [Protonix] 40 mg tablet,delayed release (DR/EC) 40 mg PO DAILY Qty: 30 0RF ondansetron 4 mg tablet,disintegrating 4 mg PO TID-QID PRN (Reason: nausea and vomiting) Qty: 10 0RF No Action lithium carbonate 300 mg capsule 300 mg PO .COMPLEX 0RF Rx Instructions: Take 300mg in the am and 600 at night. ziprasidone HCl 20 mg capsule 20 mg PO DAILY 0RF Rx Instructions: give with food (meal/snack) propranolol 80 mg capsule,extended release 24 hr 80 mg PO DAILY Qty: 30 2RF topiramate [Topamax] 25 mg tablet See Rx Instructions PO DAILY Qty: 60 3RF Rx Instructions: take 25 mg PO qhs x 1 week then increase to 2 tabs (50 mg dose total qhs) PO daily; metformin 500 mg Tablet PO DAILY 0RF Referrals: Mikel Owen MD [Physician] - Calin Lozoya ARNP [Primary Care Provider] -
--- NOTE | 2021-08-10 21:52 | DI.US.S_ITS ---
PROCEDURE: US ABDOMEN LIMITED INDICATIONS: EPIGASTRIC PAIN; N/V TECHNIQUE: Real-time scanning was performed of the abdominal and retroperitoneal organs, with image documentation. COMPARISON: [facility], US, US ABDOMEN COMPLETE, 08/12/2020, 12:49. FINDINGS: Liver: Liver is enlarged measuring 19.1 cm with steatosis. Gallbladder: No stones are identified. Wall thickness is within normal limits measuring 1.4 cm. Biliary ducts: Intrahepatic bile ducts are non-dilated. Extrahepatic bile duct is not well seen. Pancreas: Visualized portions of the pancreas are sonographically normal. Spleen: Spleen is normal in size and homogeneous in echotexture. IMPRESSION: Hepatomegaly with steatosis. Otherwise, unremarkable. Dictated by: Trish Nam M.D. on 08/10/2021 at 23:11 Approved by: Trish Nam M.D. on 08/10/2021 at 23:12
[2021-08-10] MEDS: ONDANSETRON 4 MG ODT SL (22:09)
[2021-08-10 22:25] LABS: Add Manual Diff / Slide Review NO; Basophils Absolute Auto 100 /uL (0-100); Basophils Percent Auto 0.3 % (0-2); Eosinophils Absolute Auto 500 /uL (0-450); Eosinophils Percent Auto 2.8 % (2-4); Hematocrit 44.6 % (36-46); Hemoglobin 14.9 g/dL (12.0-16.0); Lymphocytes Absolute Auto 1500 /uL (1100-4500); Lymphocytes Percent Auto 7.9 % (25-40); Mean Corpuscular HGB Conc 33.5 % (30-36); Mean Corpuscular Hemoglobin 27.8 PG (26-34); Mean Corpuscular Volume 82.9 fL (80-100); Monocytes Absolute Auto 800 /uL (0-900); Monocytes Percent Auto 4.6 % (3-14); Neutrophils Absolute Auto 15700 /uL (1500-7000); Neutrophils Percent Auto 84.4 % (50-75); Platelet Count 266 X10^3/uL (150-400); Red Blood Cell Count 5.38 X10^6/uL (4.0-5.2); Red Cell Distribution Width 13.4 % (11.6-14.8); White Blood Cell Count 18.5 X10^3/uL (4.5-11.0)
[2021-08-10] MEDS: SODIUM CHLORIDE 0.9% 1,000 ML 1000 ML IV (22:34)
[2021-08-10 22:35] LABS: Lithium 0.5 mmol/L (0.6-1.2)
[2021-08-10 22:38] LABS: Alanine Aminotransferase 76 IU/L (<35); Albumin 4.5 g/dL (3.5-5.0); Albumin Globulin Ratio 1.5 (1.0-2.8); Alkaline Phosphatase 66 U/L (38-126); Aspartate Aminotransferase 52 IU/L (14-36); BUN Creatinine Ratio 15.5 (6-22); Bilirubin Total 1.2 mg/dL (0.2-1.3); Blood Urea Nitrogen 11 mg/dL (7-17); Calcium 9.6 mg/dL (8.4-10.2); Carbon Dioxide 25 mmol/L (22-32); Chloride 105 mmol/L (98-107); Estimated Glomerular Filt Rate > 60.0 mL/min (>60); Globulin 3.1 g/dL (1.7-4.1); Glucose 109 mg/dL (70-100); HEMOLYSIS < 15 (0-50); Lipase 43 U/L (23-300); Potassium 3.7 mmol/L (3.4-5.1); Sodium 137 mmol/L (137-145); Total Protein 7.6 g/dL (6.3-8.2)
[2021-08-10] MEDS: PANTOPRAZOLE 40 MG VIAL IV (23:06)
[2021-08-10 23:41] LABS: Bacteria Urine Moderate (10-30); Culture Indicated Urine Cult Not Indicated; Mucus Urine 1+ (Negative); RBC Urine None Seen (0-5/HPF); Squamous Epithelial Cell Urine 5-10 /HPF (0-5/HPF); WBC Urine 0-1/HPF (0-5/HPF)
[2021-08-11] VITALS: PULSE 102; RESP 24; O2SAT 98
[2021-08-11 00:01] VITALS: BP 130/58; PULSE 99; RESP 24; O2SAT 98
[2021-08-11 00:30] VITALS: BP 120/55; PULSE 99; RESP 15; O2SAT 100
[2021-08-11 01:00] VITALS: BP 115/57; PULSE 101; RESP 22; O2SAT 100
[2021-08-11 01:30] VITALS: BP 121/57; PULSE 102; RESP 27; O2SAT 98
[2021-08-11] MEDS: ONDANSETRON 4 MG ODT PREPACK 1 BOTTLE MISC (01:32)
[2021-08-11] MEDS: HYDROCODONE/ACET 5/325 PREPACK 1 BOTTLE MISC (01:32)
== END 2021-08-11 01:42 | disposition home or self-care (01) ==
PROVIDERS: Emergency Provider Emergency Medicine; PCP Registered Nurse
DX: R10.13 Epigastric pain (principal); Z87.891 Personal history of nicotine dependence
CPT/HCPCS: 36415; 76705; 80053; 80178; 81003; 81015; 81025; 83690; 85025; 93005; 96361; 96374; 99284; C9113

== ENCOUNTER → 2021-08-17 12:57 | Outpatient (CLI) | payer BC, SELFPAY ==
[2021-08-17 14:07] LABS: Lithium 0.7 mmol/L (0.6-1.2)
[2021-08-17 14:11] LABS: Alanine Aminotransferase 92 IU/L (<35); Albumin 4.4 g/dL (3.5-5.0); Albumin Globulin Ratio 1.4 (1.0-2.8); Alkaline Phosphatase 43 U/L (38-126); Aspartate Aminotransferase 70 IU/L (14-36); BUN Creatinine Ratio 12.5 (6-22); Blood Urea Nitrogen 8 mg/dL (7-17); Calcium 9.8 mg/dL (8.4-10.2); Carbon Dioxide 27 mmol/L (22-32); Chloride 106 mmol/L (98-107); Estimated Glomerular Filt Rate > 60.0 mL/min (>60); Globulin 3.2 g/dL (1.7-4.1); Glucose 97 mg/dL (70-100); Sodium 139 mmol/L (137-145); Total Protein 7.6 g/dL (6.3-8.2)
[2021-08-17 14:15] LABS: HEMOLYSIS 199 (0-50)
[2021-08-17 14:16] LABS: Potassium 5.1 mmol/L (3.4-5.1)
== END ==
PROVIDERS: PCP Registered Nurse; Referring Provider Psychiatry & Neurology Psychiatry; Visit Provider Psychiatry & Neurology Psychiatry
DX: Z79.899 Other long term (current) drug therapy (principal)
CPT/HCPCS: 36415; 80053; 80178

== ENCOUNTER → 2021-09-02 12:53 | Outpatient (CLI) | payer BC, SELFPAY | PROVIDERS: PCP Registered Nurse; Referring Provider Surgery; Visit Provider Surgery | DX: R10.13 Epigastric pain (principal); Z53.20 Procedure and treatment not carried out because of patient's decision for unspecified reasons ==

== ENCOUNTER → 2024-01-15 15:43 | Outpatient (CLI) | payer OTHER, SELFPAY ==
--- NOTE | 2024-01-15 15:44 | DI.US.S_ITS ---
PROCEDURE: US OB <= 14 WEEKS FETUS INDICATIONS: DATES OUTSIDE/PRIOR DATING DATA: Last menstrual period (LMP): 11/23/2023. LMP-based estimated date of delivery (TANGELA): 08/29/2023. First dating scan (date and location): 01/15/2024. Estimated date of delivery (TANGELA) from first dating scan: 09/09/2024. TECHNIQUE: Real-time scanning was performed of the fetus and maternal pelvic organs, with image documentation. Endovaginal scanning was also performed to better visualize the fetus and maternal ovaries. COMPARISON: None FINDINGS: Embryo: Single live intrauterine is present with crown-rump length measuring 4 mm corresponding to 6 weeks 0 days. Heart rate: 117 beats per minute Maternal organs: Ovaries demonstrate a right corpus luteal cyst. The left ovary is not well seen.. IMPRESSION: Single live intrauterine with gestational age of 6 weeks 0 days by today's exam. Recommend follow-up imaging at 20-22 weeks for dates and anatomy. We strive to produce accurate, complete, and clear reports of imaging services. To assist us in improving patient care, this report was composed using standard report templates and voice recognition software. Therefore, it may contain abnormal punctuation, insertions and/or omissions. Occasional wrong-word or sound-alike substitutions may occur. Though we review the report and make efforts to correct it, we do recommend that the report be read carefully in proper context to recognize any text inaccuracies. Dictated by: Trish Nam M.D. on 01/15/2024 at 16:49 Approved by: Trish Nam M.D. on 01/15/2024 at 16:50
== END ==
LOC: US 15:44
PROVIDERS: PCP Registered Nurse Diabetes Educator; Referring Provider Physician Assistant; Visit Provider Physician Assistant
DX: Z34.91 Encounter for supervision of normal pregnancy, unspecified, first trimester (principal); Z3A.01 Less than 8 weeks gestation of pregnancy; N83.11 Corpus luteum cyst of right ovary
CPT/HCPCS: 76801; 76817

== ENCOUNTER → 2024-02-01 16:10 | Outpatient (CLI) | payer OTHER, SELFPAY ==
[2024-02-01 18:14] LABS: Urine N gonorrhoeae NOT DETECTED
[2024-02-01 18:27] LABS: Urine Chlamydia NOT DETECTED
== END ==
PROVIDERS: PCP Registered Nurse Diabetes Educator; Visit Provider Obstetrics & Gynecology
DX: Z34.01 Encounter for supervision of normal first pregnancy, first trimester (principal); Z3A.08 8 weeks gestation of pregnancy
CPT/HCPCS: 87491; 87591

== ENCOUNTER → 2024-02-06 15:06 | Outpatient (CLI) | payer OTHER, SELFPAY ==
[2024-02-06 16:25] LABS: Add Manual Diff / Slide Review NO; Basophils Absolute Auto 100 /uL (0-100); Basophils Percent Auto 0.6 % (0-2); Eosinophils Absolute Auto 200 /uL (0-450); Eosinophils Percent Auto 2.1 % (2-4); Hematocrit 40.8 % (36-46); Lymphocytes Absolute Auto 2400 /uL (1100-4500); Lymphocytes Percent Auto 22.9 % (25-40); Mean Corpuscular HGB Conc 34.2 % (30-36); Mean Corpuscular Hemoglobin 29.5 PG (26-34); Mean Corpuscular Volume 86.4 fL (80-100); Monocytes Absolute Auto 600 /uL (0-900); Monocytes Percent Auto 5.3 % (3-14); Neutrophils Absolute Auto 7400 /uL (1500-7000); Neutrophils Percent Auto 69.1 % (50-75); Platelet Count 171 X10^3/uL (150-400); Red Blood Cell Count 4.73 X10^6/uL (4.0-5.2); Red Cell Distribution Width 13.4 % (11.6-14.8); White Blood Cell Count 10.6 X10^3/uL (4.5-11.0)
[2024-02-06 17:00] LABS: Alanine Aminotransferase 31 IU/L (<35); Albumin 3.9 g/dL (3.5-5.0); Albumin Globulin Ratio 1.6 (1.0-2.8); Alkaline Phosphatase 76 U/L (38-126); Aspartate Aminotransferase 24 IU/L (14-36); Bilirubin Total 0.5 mg/dL (0.2-1.3); Bilirubin Unconjugated 0.1 mg/dL (0.0-1.1); Globulin 2.4 g/dL (1.7-4.1); HEMOLYSIS < 15 (0-50); Total Protein 6.3 g/dL (6.3-8.2)
[2024-02-07 15:31] LABS: Hepatitis B Surface Antigen NEGATIVE s/c (NEGATIVE); Rubella Antibody IgG 15.6 IU/mL (>15)
[2024-02-07 15:42] LABS: HIV 1 & 2 Ab/Ag 4th Gen Combo NEGATIVE (NEGATIVE); Hep C Virus Ab w/Reflex Quant NEGATIVE s/c (NEGATIVE)
== END ==
PROVIDERS: PCP Registered Nurse Diabetes Educator; Referring Provider Obstetrics & Gynecology; Visit Provider Obstetrics & Gynecology
DX: Z34.80 Encounter for supervision of other normal pregnancy, unspecified trimester (principal); K76.0 Fatty (change of) liver, not elsewhere classified
CPT/HCPCS: 36415; 80055; 80076; 86787; 86803; 86850; 86900; 86901; 87086; 87389

== ENCOUNTER → 2024-02-11 15:29 | Outpatient (CLI) | payer OTHER, SELFPAY ==
[2024-02-11 16:40] LABS: Natera Collection Specimen Collected
== END ==
PROVIDERS: PCP Registered Nurse Diabetes Educator; Referring Provider Obstetrics & Gynecology; Visit Provider Obstetrics & Gynecology
DX: Z34.01 Encounter for supervision of normal first pregnancy, first trimester (principal); Z3A.10 10 weeks gestation of pregnancy
CPT/HCPCS: 36415

== ENCOUNTER → 2024-04-21 14:49 | Outpatient (CLI) | payer OTHER, SELFPAY ==
--- NOTE | 2024-04-21 14:49 | DI.US.S_ITS ---
PROCEDURE: US OB >= 14 WEEKS FETUS INDICATIONS: anatomy scan OUTSIDE/PRIOR DATING DATA: Last menstrual period (LMP): 11/23/2023. LMP-based estimated date of delivery (TANGELA): 08/29/2023. First dating scan (date and location): 01/15/2024. Estimated date of delivery (TANGELA) from first dating scan: 09/09/2024. The calculations are made using the clinical TANGELA of 09/09/2024. TECHNIQUE: Real-time scanning was performed of the fetus, with image documentation and biometric measurements. Endovaginal scanning: Not performed COMPARISON: Ob ultrasound 01/15/2024. FINDINGS: General: A single living intrauterine gestation is present. Presentation: Vertex. Placenta: Placental position is posterior , without previa. Amniotic fluid index: 14 cm, normal range is 5-24 cm. Single deepest vertical pocket is 4.4 cm. heart rate: 155 beats per minute. Maternal cervical canal: 4.7 cm long. Normal lower limit is 2.5 cm. biometrics: Biparietal diameter: 4.8 cm Head circumference: 18.0 cm Abdominal circumference: 15.1 cm Femur length: 3.6 cm Clinically estimated gestational age: 19 weeks, 6 days Composite gestational age from present scan: 20 weeks, 5 days Estimated weight and percentile: 373 g, 89th percentile Anatomic survey: Neuro: Ventricles are non-dilated at less than 10 mm. Cisterna magna is normal at 3-11 mm. Cerebellum is normal in size and morphology. Nuchal skin fold: Normal at less than 6 mm between 14-21 weeks gestational age. Face: Nose and lips, facial profile are normal. Spine: No evidence for spina bifida. Heart: 4-chambered heart is present, with normal ventricular outflow tracts. Diaphragm: Diaphragm is intact. Stomach: Left-sided stomach is present. Kidneys: No hydronephrosis. Normal is less than 5 mm in 2nd trimester, less than 7 mm in 3rd trimester. Cord: 3-vessel cord has orthotopic insertion. Bladder: Normal in size. Extremities: All 4 extremities identified. IMPRESSION: Single intrauterine gestation in vertex presentation with estimated gestational age of 20 weeks, 5 days which is concordant with biometry. anatomy scan demonstrates no gross abnormalities. Normal AMARJIT. Normal cervical length. Approved by: Polina Hess M.D.,Ph.D. on 04/22/2024 at 0:39
== END ==
PROVIDERS: PCP Registered Nurse Diabetes Educator; Referring Provider Obstetrics & Gynecology; Visit Provider Obstetrics & Gynecology
DX: Z34.02 Encounter for supervision of normal first pregnancy, second trimester (principal); Z3A.20 20 weeks gestation of pregnancy
CPT/HCPCS: 76811

== ENCOUNTER → 2024-04-29 10:12 | Outpatient (CLI) | payer OTHER, SELFPAY | LOC: LAB 10:13 | PROVIDERS: PCP Registered Nurse Diabetes Educator; Referring Provider Obstetrics & Gynecology; Visit Provider Obstetrics & Gynecology | DX: Z34.82 Encounter for supervision of other normal pregnancy, second trimester (principal); Z3A.21 21 weeks gestation of pregnancy | CPT/HCPCS: 36415; 82105 ==

== ENCOUNTER → 2024-05-02 10:08 | Outpatient (CLI) | payer OTHER, SELFPAY ==
[2024-05-02 11:49] LABS: Alanine Aminotransferase 22 IU/L (<35); Albumin 3.5 g/dL (3.5-5.0); Albumin Globulin Ratio 1.1 (1.0-2.8); Alkaline Phosphatase 78 U/L (38-126); Aspartate Aminotransferase 20 IU/L (14-36); BUN Creatinine Ratio 11.9 (6-22); Bilirubin Total 0.3 mg/dL (0.2-1.3); Blood Urea Nitrogen 7 mg/dL (7-17); Carbon Dioxide 19 mmol/L (22-32); Chloride 108 mmol/L (98-107); Estimated Glomerular Filt Rate > 60 mL/min (>60); Globulin 3.2 g/dL (1.7-4.1); Glucose 111 mg/dL (70-100); HEMOLYSIS < 15 (0-50); Potassium 3.9 mmol/L (3.4-5.1); Sodium 133 mmol/L (137-145); Total Protein 6.7 g/dL (6.3-8.2)
[2024-05-02 11:55] LABS: Lithium 0.6 mmol/L (0.6-1.2)
== END ==
LOC: LAB 10:10
PROVIDERS: PCP Registered Nurse Diabetes Educator; Referring Provider Psychiatry & Neurology Psychiatry; Visit Provider Psychiatry & Neurology Psychiatry
DX: Z79.899 Other long term (current) drug therapy (principal)
CPT/HCPCS: 36415; 80053; 80178

== ENCOUNTER → 2024-05-21 15:16 | Outpatient (CLI) | payer OTHER, SELFPAY ==
[2024-05-21 16:06] LABS: Lithium 0.5 mmol/L (0.6-1.2)
[2024-05-21 16:13] LABS: Alanine Aminotransferase 37 IU/L (<35); Albumin 3.8 g/dL (3.5-5.0); Albumin Globulin Ratio 1.2 (1.0-2.8); Alkaline Phosphatase 108 U/L (38-126); Aspartate Aminotransferase 29 IU/L (14-36); BUN Creatinine Ratio 6.7 (6-22); Bilirubin Total 0.4 mg/dL (0.2-1.3); Blood Urea Nitrogen 4 mg/dL (7-17); Calcium 9.6 mg/dL (8.4-10.2); Carbon Dioxide 16 mmol/L (22-32); Chloride 111 mmol/L (98-107); Estimated Glomerular Filt Rate > 60 mL/min (>60); Globulin 3.2 g/dL (1.7-4.1); Glucose 100 mg/dL (70-100); HEMOLYSIS < 15 (0-50); Potassium 3.7 mmol/L (3.4-5.1); Sodium 136 mmol/L (137-145)
== END ==
PROVIDERS: PCP Registered Nurse Diabetes Educator; Referring Provider Psychiatry & Neurology Psychiatry; Visit Provider Psychiatry & Neurology Psychiatry
DX: Z79.899 Other long term (current) drug therapy (principal)
CPT/HCPCS: 36415; 80053; 80178

== ENCOUNTER 2024-06-03 14:18 | Outpatient (CLI) | payer OTHER, SELFPAY | END 2024-06-03 15:10 | disposition home or self-care (01) | LOC: LABOR 14:26 → OB 06-09 11:40 | PROVIDERS: PCP Registered Nurse Diabetes Educator; Referring Provider Obstetrics & Gynecology; Visit Provider Obstetrics & Gynecology | DX: O36.8130 Decreased fetal movements, third trimester, not applicable or unspecified (principal); Z3A.26 26 weeks gestation of pregnancy | CPT/HCPCS: 59025; G0378; G0379 ==

== ENCOUNTER → 2024-06-21 09:22 | Outpatient (CLI) | payer OTHER, SELFPAY ==
[2024-06-21 11:24] LABS: Lithium 0.6 mmol/L (0.6-1.2)
[2024-06-21 11:28] LABS: Albumin 3.2 g/dL (3.5-5.0); Albumin Globulin Ratio 1.2 (1.0-2.8); BUN Creatinine Ratio 9.8 (6-22); Blood Urea Nitrogen 6 mg/dL (7-17); Calcium 9.4 mg/dL (8.4-10.2); Carbon Dioxide 19 mmol/L (22-32); Chloride 109 mmol/L (98-107); Estimated Glomerular Filt Rate > 60 mL/min (>60); Globulin 2.6 g/dL (1.7-4.1); Glucose 131 mg/dL (70-100); HEMOLYSIS < 15 (0-50); Potassium 3.9 mmol/L (3.4-5.1); Total Protein 5.8 g/dL (6.3-8.2)
[2024-06-21 11:40] LABS: Alanine Aminotransferase 28 IU/L (<35); Alkaline Phosphatase 118 U/L (38-126); Aspartate Aminotransferase 28 IU/L (14-36); Bilirubin Total 0.4 mg/dL (0.2-1.3); Sodium 135 mmol/L (137-145)
== END ==
PROVIDERS: PCP Registered Nurse Diabetes Educator; Referring Provider Psychiatry & Neurology Psychiatry; Visit Provider Psychiatry & Neurology Psychiatry
DX: Z79.899 Other long term (current) drug therapy (principal)
CPT/HCPCS: 36415; 80053; 80178

== ENCOUNTER → 2024-08-19 09:39 | Outpatient (CLI) | payer OTHER, SELFPAY ==
[2024-08-20 13:41] LABS: Strep Grp B PCR NEG for Grp B Strep
== END ==
PROVIDERS: PCP Registered Nurse Diabetes Educator; Visit Provider Obstetrics & Gynecology
DX: Z34.83 Encounter for supervision of other normal pregnancy, third trimester (principal); Z3A.37 37 weeks gestation of pregnancy
CPT/HCPCS: 87653

== ENCOUNTER → 2024-08-19 09:50 | Outpatient (CLI) | payer OTHER, SELFPAY ==
[2024-08-19 11:15] LABS: Lithium 0.8 mmol/L (0.6-1.2)
[2024-08-19 11:17] LABS: BUN Creatinine Ratio 9.7 (6-22); Blood Urea Nitrogen 6 mg/dL (7-17); Calcium 9.6 mg/dL (8.4-10.2); Carbon Dioxide 16 mmol/L (22-32); Chloride 108 mmol/L (98-107); Estimated Glomerular Filt Rate > 60 mL/min (>60); Glucose 133 mg/dL (70-100); HEMOLYSIS 16 (0-50); Potassium 4.2 mmol/L (3.4-5.1); Sodium 134 mmol/L (137-145)
== END ==
LOC: LAB 09:52
PROVIDERS: PCP Registered Nurse Diabetes Educator; Referring Provider Psychiatry & Neurology Psychiatry; Visit Provider Psychiatry & Neurology Psychiatry
DX: Z34.83 Encounter for supervision of other normal pregnancy, third trimester (principal); Z3A.37 37 weeks gestation of pregnancy; Z79.899 Other long term (current) drug therapy
CPT/HCPCS: 36415; 80048; 80178; 87653

== ENCOUNTER → 2024-08-26 10:11 | Outpatient (CLI) | payer OTHER, SELFPAY ==
[2024-08-26 11:17] LABS: Lithium 0.6 mmol/L (0.6-1.2)
[2024-08-26 11:23] LABS: BUN Creatinine Ratio 7.9 (6-22); Blood Urea Nitrogen 5 mg/dL (7-17); Calcium 9.7 mg/dL (8.4-10.2); Carbon Dioxide 15 mmol/L (22-32); Chloride 108 mmol/L (98-107); Estimated Glomerular Filt Rate > 60 mL/min (>60); Glucose 150 mg/dL (70-100); HEMOLYSIS < 15 (0-50); Potassium 4.2 mmol/L (3.4-5.1); Sodium 133 mmol/L (137-145)
== END ==
PROVIDERS: PCP Registered Nurse Diabetes Educator; Referring Provider Psychiatry & Neurology Psychiatry; Visit Provider Psychiatry & Neurology Psychiatry
DX: Z79.899 Other long term (current) drug therapy (principal)
CPT/HCPCS: 36415; 80048; 80178

== ENCOUNTER 2024-09-07 11:08 | Outpatient (CLI) | payer OTHER, SELFPAY ==
[2024-09-07 12:13] LABS: Appearance Urine UA CLEAR; Bilirubin Urine UA NEGATIVE (NEGATIVE); Color Urine UA YELLOW; Glucose Urine UA NEGATIVE (Negative); Ketones Urine UA TRACE (NEGATIVE); Leukocyte Esterase Urine UA NEGATIVE (NEGATIVE); Nitrite Urine UA NEGATIVE (Negative); Occult Blood Urine UA NEGATIVE (Negative); Protein Urine UA 1+ (Negative); Specific Gravity Urine UA 1.015 (1.000-1.035); Urobilinogen Urine UA 0.2 E.U./dL (0.2)
[2024-09-07 12:40] LABS: pH Urine UA 7.5 (4.5-8.0)
[2024-09-07 12:41] LABS: Bacteria Urine Many (>30); Culture Indicated Urine Cult Not Indicated; RBC Urine None Seen (0-5/HPF); Squamous Epithelial Cell Urine 1-5 /HPF (0-5/HPF); Urine Volume 10mL (spun); WBC Urine 0-1/HPF (0-5/HPF)
== END 2024-09-07 12:21 | disposition home or self-care (01) ==
LOC: OB 09-08 08:05
PROVIDERS: PCP Registered Nurse Diabetes Educator; Referring Provider Student in an Organized Health Care Education/Training Program; Visit Provider Student in an Organized Health Care Education/Training Program
DX: O36.8130 Decreased fetal movements, third trimester, not applicable or unspecified (principal); O99.891 Other specified diseases and conditions complicating pregnancy; N89.8 Other specified noninflammatory disorders of vagina; Z3A.39 39 weeks gestation of pregnancy
CPT/HCPCS: 59025; 81001; G0378; G0379

== ENCOUNTER → 2024-09-09 10:11 | Outpatient (CLI) | payer OTHER, SELFPAY ==
[2024-09-09 11:00] LABS: Lithium 0.8 mmol/L (0.6-1.2)
== END ==
PROVIDERS: PCP Registered Nurse Diabetes Educator; Referring Provider Psychiatry & Neurology Psychiatry; Visit Provider Psychiatry & Neurology Psychiatry
DX: Z79.899 Other long term (current) drug therapy (principal)
CPT/HCPCS: 36415; 80178

== ENCOUNTER 2024-09-10 07:03 | Inpatient (IN) | payer OTHER, SELFPAY ==
--- NOTE | 2024-09-10 07:08 | P.HPOB_ITS ---
OB HPI Date/Time Date of admission: 09/10/24 Date Patient Seen: 09/10/24 Time Patient Seen: 07:08 History of Present Condition Chief complaint: IOL at term TANGELA Calculator Estimated Delivery Date Method Current WG Current Estimate 09/09/24 Ultrasound #1 40w 1d Other Estimates 08/29/24 LMP (Certain) 41w 5d Estimated Gestational Age (weeks): 40w1d : 2 Para: 0 Narrative: Daly is a 24yo at 40w1d by 6wk US who presents to facility for scheduled medically indicated IOL at term in setting of class 3 maternal obesity, maternal medication exposure (lithium) with indication for coordinated delivery with peds. Pt last seen in office 09/09/24 SVE at that time 4-5cm. +FM, denies VB, LOF, dysuria. Continued irregular contractions without s/sx of true labor. PMHx notable for maternal obesity, h/o maternal mood disorder currently well controlled on lithium (serial therapeutic levels checked throughout third trimester). course notable for intermittent non-compliance with routine care (never completed 1h OGTT), s/p TDAP and RSV vaccination. MFM consultation due to medication exposure including DI-FAS and echo without abnormality. Patient has met with peds (Dr. Pierre) for purposes of care planning, see associated documentation (plan for cord blood collection at time of delivery for lithium level/TFTs). care: good care (intermittent non-compliance, did not complete 1h OGTT) Dating criteria OB: based on 1st trimester US only Obstetrical complications: other Medical complications OB: other Indications Indication for induction OB: other (maternal medication/ exposure ) Preadmission Labs Last OB Lab Results: Blood Type A Positive 02/06/24 15:14 Antibody Screen Negative 02/06/24 15:14 Hct 40.8 % (36-46) 02/06/24 15:14 Hgb 14.0 g/dL (12.0-16.0) 02/06/24 15:14 Hep Bs Antigen Negative s/c (NEGATIVE) 02/06/24 15:14 Hepatitis C Antibody Negative s/c (NEGATIVE) 02/06/24 15:14 Rubella Antibody 15.6 IU/mL (>15) 02/06/24 15:14 VZV IgG Antibody 271 index (Immune >165) 02/06/24 15:14 Group B Strep (PCR) Neg for grp b strep 08/19/24 09:30 -: Chlamydia screen: negative, Gonorrhea screen: negative and Urine: negative -: PAP smear: Normal Genetic Screens: Cell-free DNA: Normal and Alpha-fetoprotein: Normal External Labs -: Urine: negative Prior (ies) Past Pregnancies Del. Date GA/Weeks Labor Lgth Wt Sex Route Outcome Anesthesia Place Delv Breastfeed Preg Comp Name 10/15/19 <8 elective Delivery Date: 10/15/19 Last Updated by: Tammi Fuentes RN Done w/ PO meds, no complications Evaluation Evaluation Variability: Moderate (11-25) monitor accelerations: Present Uterine Contraction Intensity: Mild Category of Tracing: Reactive Status: Category l Dilation (cm): 5 Effacement (%): 50 Dilation: >/=5 cm Effacement: 40-50% station: +1 Position of cervix: mid Consistency: soft Duckworth score: 10 Comments: membrane strip performed [facility] Medical History (Updated 09/02/24 @ 14:55 by Letty Valdez DO) Medication exposure during first trimester of Epigastric pain Asthma History of bipolar disorder Painful menstrual periods Ovarian cyst Surgical History (Updated 01/22/24 @ 15:40 by Tammi Fuentes RN) History of tonsillectomy and adenoidectomy [place] teeth extracted (~2019) Anesthesia History of removal of ovarian cyst (~02/2018) Family History (Updated 01/22/24 @ 15:45 by Tammi Fuentes RN) Grandmother Hyperthyroidism H/O thyroidectomy Bipolar disorder Grandmother Bipolar disorder Grandfather Heart disease S/P CABG x 3 Father Obsessive compulsive disorder Social History marital status: number of children: 1 (stepdaughter) household members: spouse and children lives independently: Yes caregiver/support person: Yes housing: house pets and animals: Yes (2 dogs, 2) education level: college (Associate's degree) occupational status: employed (business banking representative) current occupational exposures/hazards: No special ayo needs: No travel history: over 6 months ago seatbelt use: always water heater temp set < 120 deg: Yes working smoke detector in home: Yes fire extinguisher in home: Yes carbon monox detector in home: Yes firearms in home: No do you feel safe at home: Yes Smoking Status: Former smoker (Quit 01/02/24) Tobacco: How many years used: 6 quit status: has quit before second hand exposure: No alcohol intake: never substance use type: marijuana (agrees not to use while /) during the past year weight has: remained stable well-balanced diet: daily or most days daily servings fruits/ve or more times/day caffeine: Yes Type(s) of exercise: walking Meds Home Medications and Allergies Home Medications Medication Instructions Recorded Confirmed Type ondansetron 4 mg disintegrating 4 mg PO TID-QID PRN nausea and 08/11/21 09/09/24 Rx tablet vomiting #10 tabs rizatriptan 5 mg disintegrating See Rx Instructions PO .COMPLEX 07/03/22 09/09/24 Rx tablet #30 tabs vit 87-iron carb,asp 18 1 cap PO DAILY #90 caps 01/15/24 09/09/24 Rx mg-folic acid 1 mg-dha 350 mg capsule (Prenate Mini (ferrous asparto glycinate)) buspirone 15 mg tablet 15 mg PO DAILY 01/22/24 09/09/24 History propranolol 20 mg tablet 20 mg PO DAILY 01/22/24 09/09/24 History lithium carbonate 300 mg tablet 300 mg PO TID 04/29/24 09/09/24 History RSVPreF3 antigen-AS01E 0.5 ml IM ONCE #1 ea 07/21/24 09/09/24 Rx adjuvant(PF) 120 mcg/0.5 mL IM suspension, kit Allergies Allergy/AdvReac Type Severity Reaction Status Date / Time latex Allergy Intermediate Hives Verified 09/09/24 10:57 lamotrigine Allergy Hives Verified 09/09/24 10:57 OB Exam Vital signs Blood Pressure: 132/62 Pulse Rate: 94 Respiratory Rate: 18 Temperature: 96.3 F HENMT Head: normal to inspection Resp Effort & Inspection: normal respiratory effort and able to speak in complete sentences Cardio Rate: regular rate Heart Sounds: S1 normal and S2 normal Extremities Lower extremity: Yes normal to inspection GI Inspection: normal to inspection Other: gravid, nicol cephalic 7.5# Assessment and Plan Assessment and Plan Assessment and Plan narrative: 24yo at 40w1d by 6wk US presents for scheduled medically indicated IOL at term in setting of maternal obesity, maternal medication exposure IOL cat 1 tracing, VSS/afebrile SVE /+1, membranes stripped plan single time low-dose misoprostol for further cervical ripening as patient without contractions on admission, initiation of pitocin per protocol thereafter anticipate further augmentation with AROM with adequate descent pending response to pitocin PNL as above, GBS neg, rubella immune, 1h OGTT unknown Maternal medication exposure hold home lithium until after delivery per peds recommendation, planned resumption at pre-third trimester dose thereafter (900mg) maternal lithium level obtained 09/09 and therapeutic (0.8) plan for labs (CBC, lithium level, tSH/fT4) at delivery, repeat lithium levels DOL 2 and 10 per peds documentation patient is consented for vaginal, vaginal operative and delivery as well as transfusion of blood products as medically indicated anticipate Time-Based Coding :: [TOTAL MINUTES] spent with patient and on the chart (including review of chart, obtaining history, exam, reviewing outside data, placing orders, documenting exam and treatment plan, and counseling patient) on [DATE].
[2024-09-10 07:20] VITALS: BP 132/62; PULSE 94; RESP 18; TEMP 35.7
[2024-09-10] MEDS: miSOPROStoL 25 MCG TABLET PO (08:05)
[2024-09-10 09:09] LABS: Add Manual Diff / Slide Review NO; Basophils Absolute Auto 100 /uL (0-100); Basophils Percent Auto 0.6 % (0-2); Eosinophils Absolute Auto 400 /uL (0-450); Eosinophils Percent Auto 2.3 % (2-4); Hematocrit 39.6 % (36-46); Hemoglobin 13.2 g/dL (12.0-16.0); Lymphocytes Absolute Auto 2100 /uL (1100-4500); Lymphocytes Percent Auto 13.3 % (25-40); Mean Corpuscular HGB Conc 33.4 % (30-36); Mean Corpuscular Hemoglobin 28.3 PG (26-34); Mean Corpuscular Volume 84.9 fL (80-100); Monocytes Absolute Auto 600 /uL (0-900); Monocytes Percent Auto 3.9 % (3-14); Neutrophils Absolute Auto 12700 /uL (1500-7000); Neutrophils Percent Auto 79.9 % (50-75); Platelet Count 200 X10^3/uL (150-400); Red Blood Cell Count 4.66 X10^6/uL (4.0-5.2); Red Cell Distribution Width 14.7 % (11.6-14.8); White Blood Cell Count 15.9 X10^3/uL (4.5-11.0)
[2024-09-10 09:29] VITALS: BP 132/62
[2024-09-10] MEDS: LACTATED RINGERS 1,000 ML 100 ML IV ×2 (11:17→21:03)
[2024-09-10] MEDS: OXYTOCIN PREMIX 30 UNIT/500 ML PLAST..BAG IV ×2 (12:01→21:04)
--- NOTE | 2024-09-10 13:27 | PM.OBPNLAB ---
Date/Time Date Patient Seen: 09/10/24 Time Patient Seen: 13:27 Pain Control Pain control: tolerating well Pelvic Exam Dilation (cm): 5 Effacement (%): 70 station: +1 Amniotic membrane status: Intact Contractions Contractions on admission: irregular Pitocin rate (mU/min): 6 Contraction frequency (min): 3 Contraction pattern: Irregular Contraction intensity: Mild Status status: Category l Heart Rate Baseline: 140 Monitor Accelerations: Present Monitor Decelerations: Absent Monitor Variability: Moderate Assessment and Plan Assessment: induction ongoing Plan: continuous present management Comments: AROM clear fluid cat 1 tracing encourage ambulation, position changes, analgesia PRN anticipate
--- NOTE | 2024-09-10 17:34 | PM.AN.REGBLK ---
Regional Block Pre-procedure PMH/ROS narrative: 24yr old requesting epidural for labor pain. H/O taking lithium during for bipolar. [place] will have labwork to check lithium levels at . MFM has been involved, peds is aware. H/O fatty liver and obesity Exam narrative: BMI 45 ASA Class: III Labs: Hct 39.6 % (36-46) 09/10/24 08:26 Plt Count 200 X10^3/uL (150-400) 09/10/24 08:26 Medications: Current Medications Generic Name Dose Route Start Last Admin Trade Name Freq PRN Reason Stop Dose Admin Calcium Carbonate 1,000 mg 09/10/24 07:08 Calcium Carbonate 500 Mg Tab PO Q2HR PRN Dyspepsia Carboprost Tromethamine 250 mcg 09/10/24 07:08 Carboprost 250 Mcg/Ml Ampul IM Q90M PRN Bleeding Oxytocin/Lactated Ringer's 30 unit in 500 mls @ 2 mls/hr 09/10/24 07:15 09/10/24 12:01 Oxytocin Premix IV 2 milliunit/min TITRATE GINGER 2 mls/hr Administration Protocol 2 MILLIUNIT/MIN Oxytocin/Lactated Ringer's 30 unit in 500 mls @ 200 mls/hr 09/10/24 07:08 Oxytocin Premix IV CONT PRN Bleeding Protocol Tranexamic Acid 1,000 mg/ 100 mls @ 600 mls/hr 09/10/24 07:08 Sodium Chloride IV NOW PRN Bleeding Oxytocin/Lactated Ringer's 30 unit in 500 mls @ 2 mls/hr 09/10/24 07:49 Oxytocin Premix IV TITRATE GINGER Protocol 2 MILLIUNIT/MIN Lidocaine HCl 20 ml 09/10/24 07:08 Lidocaine 1% 20 Ml INJ INTRA-OP PRN Post Delivery Methylergonovine Maleate 0.2 mg 09/10/24 07:08 Methylergonovine 0.2 Mg/Ml Vial IM NOW PRN Bleeding Methylergonovine Maleate 0.2 mg 09/10/24 07:08 Methylergonovine 0.2 Mg Tablet PO Q6HR PRN Heavy Bleeding Misoprostol 400 mcg 09/10/24 07:08 Misoprostol 200 Mcg Tablet SL NOW PRN Bleeding Misoprostol 800 mcg 09/10/24 07:08 Misoprostol 200 Mcg Tablet MA NOW PRN Bleeding Naloxone HCl 0.2 mg 09/10/24 07:08 Naloxone 0.4 Mg/Ml Vial IV Q2MIN PRN Opiate Reversal Ondansetron HCl 4 mg 09/10/24 07:08 Ondansetron 4 Mg/2 Ml Inj IV Q4HR PRN Nausea And Vomiting Oxytocin 10 unit 09/10/24 07:08 Oxytocin 10 Unit/Ml Vial IM NOW PRN Bleeding Allergies: Allergies Allergy/AdvReac Type Severity Reaction Status Date / Time latex Allergy Intermediate Hives Verified 09/09/24 10:57 lamotrigine Allergy Hives Verified 09/09/24 10:57 Procedure Insertion date: 09/10/24 Insertion time: 16:22 Prep/Local: 1% lidocaine (chloroprep) Interspace: L4-5 Patient position: sitting Needle: 18 gauge Hustead (27G Dina for intrathecal dose) Loss of resistance with: saline DAVID at (cm): 8 Catheter placed at SKIN (cm): 15 Catheter in SPACE (cm): 7 Insertion: Yes CSF, No Blood, No Paresthesia with insertion, No Paresthesia with injection and No Test dose reaction Initial Medications TEST DOSE time: 16:24 TEST DOSE: 1.5% lidocaine with epinephrine 1:200k (mL): 3 BOLUS DOSE time: 16:37 BOLUS DOSE (mL): 5 BOLUS DOSE med: 0.25% bupivacaine (Intrathecal dose 1cc 0.25% bupivicaine) Infusion INFUSION: 0.125% bupivacaine and with fentanyl 2 mcg/mL Initial rate (mL/hr): 6 Subsequent interventions: 1730 bolus 5cc 0.25% bupivicaine Infusion increased to 10cc/hr 1947 2cc fentanyl and 8 cc 0.25% bupivicaine given in 2 doses (1947 and 1999) Infusion increased to 12cc/h Post-procedure Anesthesia date START: 09/10/24 Anesthesia time START: 16:00 Anesthesia date END: 09/10/24 Anesthesia time END: 23:23 Post-procedure Anesthesia Assessment: Yes CV function: HR/BP stable, Yes Resp function: RR/sat/airway adequate, Yes Post-op hydration adequate, Yes Pain control adequate, Yes Nausea & vomiting absent, Yes Temperature > 36 C and Yes Mental status appropriate
[2024-09-10] MEDS: CALCIUM CARBONATE 500 MG TAB 1000 MG PO (21:02)
[2024-09-10] MEDS: FENT 2MCG/ML BUPIV 0.125% EPI 200 MCG/100 ML PLAST..BAG 6 MCG EPIDURAL (21:58)
[2024-09-10] MEDS: miSOPROStoL 200 MCG TABLET 800 MCG PR (23:43)
--- NOTE | 2024-09-11 00:04 | P.PCNOB_ITS ---
Events: Other (IOL at term, maternal medication exposure (lithium)) Labor & Delivery Delivery date: 09/11/24 Delivery Time: 23:23 Intrapartal Events: Prolonged Latent Phase Cervical ripening method: per misoprostal protocol Induction method: per pitocin protocol Delivery augmentation: rupture of membranes Delivery monitor: external FHT and internal FHT Route of delivery: vacuum extraction Indication for instrumentation: nonreassuring FHR tracing Episiotomy description: None L&D Laceration Description: Periurethral - 1st Degree and Perineal - 2nd Degree Delivery repair: vicryl Estimated blood loss (mL): 300 Quantitative Blood Loss: 347 Anesthesia Type: Epidural Complications: none Narrative: Patient in dorsal lithotomy position with strong urge to push. Rasmussen catheter discontinued. Descent of station to +2/3 with successive maternal expulsive efforts. Intermittent variable decelerations noted and FSE requested for and applied. FSE was unable to be attached and external monitoring was intermittently used over a period of 8 minutes prior to re-establishing monitoring, noted FHR 90-120 throughout without sustained bradycardia. With successive expulsive efforts increasing maternal exhaustion noted and increasing frequency of variables to repeated with nicole to 40bpm. Recommendation made for trial of operative delivery with kiwi vacuum and patient assented to procedure. Catheter discontinued <45min prior to application. Kiwi vacuum applied to occiput and pressure applied to green zone. Application time 90 seconds, 2 pulls without pop-off with successful delivery of head in PARI with immediate restitution to maternal left. Patient's legs were flexed and gentle downward traction applied to head with subsequent delivery of anterior shoulder. Nuchal cord x1, unable to be reduced and delivered through. Posterior shoulder and body delivered without difficulty and baby was placed on maternal abdomen for resuscitation. Initial weak tone noted with cry and improved respiration by minute 1 of life, 7/8. Delayed cord clamping x90s. Cord was clamped x2 and cut by FOB; 3VC noted. Cord blood gas collected for lithium level. Placenta delivered spontaneously <10min from delivery, inspected and noted to be intact. Perineal exam revealed a deep second degree laceration repaired with 2-0 vicryl in running fashion. A clitoral/periurethral 1st degree laceration was noted to be hemostatic. Fundal massage was performed and fundus was firm. Misoprosotol 1000mcg placed per rectum for PPH prophylaxis. All counts correct x2. [place] Baby 1: Infant gender: Male Presentation: vertex Position: Left Occiput Anterior Placenta delivery description: Spontaneous Cord Vessel Description: 3 Vessels and Nuchal Cord score (1 min): 7 score (5 min): 8 Plan for aftercare: Routine care
[2024-09-11] MEDS: WITCH HAZEL/GLYCERIN PADS 1 EACH TOP (03:45)
[2024-09-11] MEDS: IBUPROFEN 600 MG TABLET PO ×4 (03:45→21:04)
[2024-09-11] MEDS: ACETAMINOPHEN 325 MG TABLET 650 MG PO ×4 (03:45→22:31)
[2024-09-11] MEDS: DERMOPLAST SPRAY 20% 60 ML 1 SPRAY TOP (03:46)
[2024-09-11] MEDS: PRENATAL VIT,CALC/IRON/FOLIC 1 TABLET 1 TAB PO (08:27)
[2024-09-11] MEDS: LITHIUM 150 MG IR CAPSULE 300 MG PO ×3 (08:27→21:06)
[2024-09-11] MEDS: FERROUS SULFATE 325 MG TABLET PO (08:27)
[2024-09-11] MEDS: LANOLIN OINT 7 GM 1 APPLIC TOP (09:15)
[2024-09-11] MEDS: PROPRANOLOL 10 MG TABLET 20 MG PO (21:05)
[2024-09-11] MEDS: BUSPIRONE 5 MG TABLET 15 MG PO (21:05)
[2024-09-12] MEDS: IBUPROFEN 600 MG TABLET PO ×2 (04:57→11:13)
--- NOTE | 2024-09-12 07:46 | PM.OBDS.1 ---
Discharge Providers Provider Date of admission: 09/10/24 07:03 Discharge Date: 09/12/24 Primary care physician: JESSICA Antonio Consults: 09/10/24 07:08 Consult to Anesthesiology Urgent Comment: Consulting Provider: Anesthesiologist Reason for consultation: Epidural 09/12/24 00:02 Consult to Servomechanism Assembler Routine Comment: Discharge provider: Naila Luna MD Summary Hospital Course Date Patient Seen: 09/12/24 Time Patient Seen: 07:46 Diagnoses: class 3 maternal obesity maternal medication exposure in (lithium) term Hospital Course: 24yo at 40w1d by 6wk US admitted to facility for scheduled, medically IOL at term in setting of maternal class 3 obesity, maternal medication exposure (lithium) without anomaly. Patient underwent cervical ripening with single dose misoprosotol followed by pitocin augmentation as well as AROM. Prolonged latent phase, however appropriate progression of labor once in active phase. Second stage complicated by tight pubic arch and maternal exhaustion, successful VAVD with deep second degree laceration, male 7/8. cord blood sent for lithium testing at time of delivery per peds recommendation. Patient had uncomplicated course and was discharged to home on PPD1 meeting all milestones. Home psych medications were resumed at pre- dose immediately following delivery per psych recommendations. Formula feeding, maternal choice. Plan for close interval mood check in office one week, will address contraception planning at that time. Routine preE/VTE precautions reviewed at discharge. Peripartum Data Delivery Method: Assisted Delivery (vacuum-assisted) Laceration Description: Periurethral - 1st Degree (clitoral) and Perineal - 2nd Degree Procedures: vacuum-assisted vaginal delivery complications: none [place] 1: Gender: Male Disposition of : home Discharge Diagnosis (1) Encounter for vaginal delivery: Status: Acute Status at Discharge Cognitive/behavioral status at discharge: oriented Functional status at discharge: independent ambulation Overall status at discharge: patient is back to baseline Time Spent with Patient Time attestation: Total time spent providing and/or coordinating discharge services: Time spent: Less than 30 minutes Objective Labs 09/10/24 08:26 Exam Vital Signs (past 8 hours): maternal VSS/afebrile, reviewed in OBIX and wnl Const General: cooperative, comfortable and well developed Nutritional Appearance: obese Orientation: alert, awake and oriented x3 Limitations: mental status not altered Resp Effort & Inspection: normal respiratory effort and able to speak in complete sentences Cardio Pulses: normal peripheral pulses GI Inspection: normal to inspection, large pannus and obesity Other: fundus firm << umb, non-tender Other: deferred, states lochia is moderate Skin General: no rashes or lesions noted Neuro General: patient alert, patient awake and patient oriented x3 Extrem General: normal to inspection Psych Mental Status: mental status grossly normal Judgment: judgment good Discharge Plan Discharge Plan Patient Disposition: Home Provider Discharge Comment: Nothing in the vagina for 4 weeks. No intercourse, tampons, douching, swimming in fresh water/pools/hot tubs. Call your provider with any concerns of fever, increase in bleeding that does not improve with ibuprofen, pain, shortness of breath/dizziness/lightheadedness. Discharge orders & Medications Prescriptions: New acetaminophen 325 mg Tablet 650 mg PO Q6HR PRN (Reason: Pain, Mild (1-3)) Qty: 30 0RF Dermoplast (with menthol) 20-0.5 % Aerosol 1 spray topical Q1HR PRN (Reason: perineal pain) Qty: 56 2RF ibuprofen 600 mg Tablet 600 mg PO Q6HR PRN (Reason: Pain, Mild (1-3)) Qty: 30 0RF Continued Prenate Mini (ferr asp glycin) 18-1-350 mg capsule 1 cap PO DAILY Qty: 90 3RF rizatriptan 5 mg tablet,disintegrating See Rx Instructions PO .COMPLEX Qty: 30 5RF Rx Instructions: take 1 tab by mouth at onset of headache; if no relief, may repeat 1 tab after 2 hrs. max daily dose of 30 mg per 24 hours buspirone 15 mg tablet 15 mg PO DAILY propranolol 20 mg tablet 20 mg PO DAILY lithium carbonate 300 mg tablet 300 mg PO TID Discontinued RSVPreF3 antigen-AS01E (PF) 120 mcg/0.5 mL suspension for reconstitution 0.5 ml IM ONCE Qty: 1 0RF ondansetron 4 mg tablet,disintegrating 4 mg PO TID-QID PRN (Reason: nausea and vomiting) Qty: 10 0RF Patient Comments: no longer taking Follow up/Referrals: Jack Pollack ARNP [Primary Care Provider] - Naila Luna MD [Physician] - 10/24/24 10:30 am (Please follow up w/ Dr. Luna for your 1 week check up on Tuesday September 17, 2024 @ 1:30 pm. Please arrive at 1:15 pm! Please follow up w/ Dr. Luna for your 6 week appointment on Thursday October 24, 2024 @10:30am. Please arrive at 10:15am!) Diet/Activity/Treatments Diet: Regular Skin/Wound/Dressing Care Report to your healthcare provider any signs of infection, such as:: chills, fever, night sweats, increased pain, unusual drainage and unusual redness Visit Report/Discharge Packet Stand Alone Forms: Patient Portal/API, Stroke Signs & Symptoms Discharge Data Primary Care Provider: Jack Pollack
[2024-09-12] MEDS: FERROUS SULFATE 325 MG TABLET PO (08:05)
[2024-09-12] MEDS: ACETAMINOPHEN 325 MG TABLET 650 MG PO ×2 (08:05→15:46)
[2024-09-12] MEDS: PRENATAL VIT,CALC/IRON/FOLIC 1 TABLET 1 TAB PO (08:05)
[2024-09-12] MEDS: LITHIUM 150 MG IR CAPSULE 300 MG PO ×2 (08:55→15:46)
== END 2024-09-12 16:50 | disposition home or self-care (01) | DRG 807 ==
PROVIDERS: Admitting Provider Student in an Organized Health Care Education/Training Program; PCP Registered Nurse Diabetes Educator; Referring Provider Student in an Organized Health Care Education/Training Program; Visit Provider Student in an Organized Health Care Education/Training Program
DX: O99.214 Obesity complicating childbirth (principal); Z37.0 Single live birth; O99.344 Other mental disorders complicating childbirth; F31.9 Bipolar disorder, unspecified; Z3A.40 40 weeks gestation of pregnancy; O70.1 Second degree perineal laceration during delivery; O71.82 Other specified trauma to perineum and vulva; O76 Abnormality in fetal heart rate and rhythm complicating labor and delivery; O75.81 Maternal exhaustion complicating labor and delivery; O09.33 Supervision of pregnancy with insufficient antenatal care, third trimester; Z87.891 Personal history of nicotine dependence; Z79.899 Other long term (current) drug therapy; O36.8130 Decreased fetal movements, third trimester, not applicable or unspecified; O99.891 Other specified diseases and conditions complicating pregnancy; Z3A.39 39 weeks gestation of pregnancy
CPT/HCPCS: 36415; 59025; 59050; 59200; 59400; 80178; 81001; 85025; 86850; 86900; 86901; G0379; J2590; J3010; S0191

== ENCOUNTER → 2024-09-16 13:49 | Outpatient (CLI) | payer OTHER, SELFPAY ==
[2024-09-16 16:00] LABS: Lithium 0.8 mmol/L (0.6-1.2)
== END ==
LOC: LAB 13:51
PROVIDERS: PCP Registered Nurse Diabetes Educator; Referring Provider Psychiatry & Neurology Psychiatry; Visit Provider Psychiatry & Neurology Psychiatry
DX: Z79.899 Other long term (current) drug therapy (principal)
CPT/HCPCS: 36415; 80178

== ENCOUNTER → 2024-10-24 10:01 | Outpatient (CLI) | payer OTHER, SELFPAY | PROVIDERS: PCP Student in an Organized Health Care Education/Training Program; Referring Provider Psychiatry & Neurology Psychiatry; Visit Provider Psychiatry & Neurology Psychiatry | DX: Z79.899 Other long term (current) drug therapy (principal) | CPT/HCPCS: 36415; 80178 ==

== ENCOUNTER → 2025-01-14 10:45 | Outpatient (CLI) | payer SELFPAY ==
[2025-01-14 12:21] LABS: Lithium 0.9 mmol/L (0.6-1.2)
[2025-01-14 12:55] LABS: Thyroid Stimulating Hormone 2.31 uIU/mL (0.47-4.68)
== END ==
PROVIDERS: PCP Student in an Organized Health Care Education/Training Program; Referring Provider Student in an Organized Health Care Education/Training Program; Visit Provider Student in an Organized Health Care Education/Training Program
DX: Z79.899 Other long term (current) drug therapy (principal)
CPT/HCPCS: 36415; 80178; 84443

== ENCOUNTER → 2025-04-22 09:42 | Outpatient (CLI) | payer OTHER, SELFPAY ==
[2025-04-22 10:57] LABS: Blood Urea Nitrogen 12 mg/dL (7-17); Calcium 9.6 mg/dL (8.4-10.2); Carbon Dioxide 19 mmol/L (22-32); Chloride 109 mmol/L (98-107); Estimated Glomerular Filt Rate > 60 mL/min (>60); Glucose 103 mg/dL (70-99); HEMOLYSIS 21 (0-50); Potassium 4.3 mmol/L (3.4-5.1); Sodium 140 mmol/L (137-145)
== END ==
PROVIDERS: PCP Student in an Organized Health Care Education/Training Program; Referring Provider Student in an Organized Health Care Education/Training Program; Visit Provider Student in an Organized Health Care Education/Training Program
DX: Z79.899 Other long term (current) drug therapy (principal)
CPT/HCPCS: 36415; 80048